=== PATIENT | female | born 1935 | race Caucasian/White ===

== ENCOUNTER 2020-08-01 12:08 | Outpatient (CLI) | payer OTHER, SELFPAY ==
[2020-08-04 21:25] LABS: NIL 0.03 IU/mL; Quantiferon TB Plus, 1T NEGATIVE (NEGATIVE)
== END 2020-08-01 12:09 | disposition home or self-care (01) ==
PROVIDERS: PCP Internal Medicine; Visit Provider Internal Medicine
DX: Z71.89 Other specified counseling (principal); M06.00 Rheumatoid arthritis without rheumatoid factor, unspecified site
CPT/HCPCS: 36415; 86480

== ENCOUNTER 2020-08-11 10:37 | Outpatient (CLI) | payer OTHER, SELFPAY ==
--- NOTE | ~2020-08-11 | XR_ITS ---
XR chest 2V 08/11/2020 11:02 Indication: Rheumatoid arthritis. Procedure: PA and lateral views of the chest Comparison: 01/22/2014 Findings: Heart size normal. There are scattered calcified granulomas. No focal air space disease, pu lmonary edema, pleural effusion or suspected pneumothorax. There is atherosclerosis. No acute osseous abnormality. Impression: 1: No acute cardiopulmonary disease. Reviewed, dictated and finalized at location B. LOGIST Impression: 1: No acute cardiopulmonary disease.
== END 2020-08-11 10:38 | disposition home or self-care (01) ==
PROVIDERS: PCP Internal Medicine; Visit Provider Internal Medicine
DX: M06.9 Rheumatoid arthritis, unspecified (principal)
CPT/HCPCS: 71046

== ENCOUNTER 2023-11-18 14:18 | Outpatient (CLI) | payer OTHER, SELFPAY ==
--- NOTE | ~2023-11-18 | XR_ITS ---
EXAMINATION: XR chest 2V DATE: 11/18/2023 14:52 INDICATION: Rheumatoid arthritis with rheumatoid factor TECHNIQUE: PA and lateral views of the chest were obtained. COMPARISON: Chest radiograph dated 08/11/2020 FINDINGS: There are few scattered small bilateral calcified pulmonary nodules consistent with old granulomatous disease. No other airspace opacities, pulmonary edema, pleural effusion or pneumothorax. The cardiom ediastinal silhouette is normal. Thoracic kyphosis with mild to moderate spondylosis. Cholecystectomy clips in right upper quadrant. IMPRESSION: 1. No acute cardiopulmonary disease. Reviewed, dictated and finalized at location B.
== END 2023-11-18 14:19 | disposition home or self-care (01) ==
PROVIDERS: PCP Family Medicine; Visit Provider Internal Medicine
DX: R70.0 Elevated erythrocyte sedimentation rate (principal); M06.041 Rheumatoid arthritis without rheumatoid factor, right hand; M06.042 Rheumatoid arthritis without rheumatoid factor, left hand
CPT/HCPCS: 71046

== ENCOUNTER 2024-09-08 15:29 | Emergency (ER) | payer OTHER, SELFPAY ==
--- NOTE | ~2024-09-08 | XR_ITS ---
XR ankle LT 2V 09/08/2024 16:05 Indication: Left ankle pain. Edema. Procedure: 2 views left ankle Comparison: 05/30/2018 Findings: There is a trimalleolar fracture with comminution of the distal tibia and fibula. There is dorsal translation of the calcaneus with respect to the tibia with lateral angulation of the fibular fracture. There is moderate displacement of the posterior malleolar fracture with mild displacement m edially of the distal fibular fracture. Impression: 1: Displaced, comminuted trimalleolar fracture with likely intra-articular extension to the tibiotala r joint. Reviewed, dictated and finalized at location A. R BOSS Impression: 1: Displaced, comminuted trimalleolar fracture with likely intra-articular exte nsion to the tibiotalar joint.
--- NOTE | ~2024-09-08 | XR_ITS ---
EXAM: XR ankle LT 2V DATE: 09/08/2024 17:14 HISTORY: reduction x2 . COMPARISON: Same date at 4:47 PM. FINDINGS/IMPRESSION: Radiographic detail obscured by overlying cast material. Persistent posteriorly displaced left ankle trimalleolar fracture. Reviewed, dictated and finalized at location K. 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
--- NOTE | ~2024-09-08 | XR_ITS ---
EXAM: XR ankle LT 2V DATE: 09/08/2024 18:27 HISTORY: reduction x3 . COMPARISON: Same date at 5:12 PM. FINDINGS/IMPRESSION: Radiographic detail obscured by overlying cast material. Persistent, slightly de creased posterior displacement of the comminuted trimalleolar fracture, now with increased lateral di splacement. Reviewed, dictated and finalized at location K. ATER CHIEF
--- NOTE | ~2024-09-08 | XR_ITS ---
EXAM: XR ankle LT 2V DATE: 09/08/2024 16:50 HISTORY: reduction . COMPARISON: 09/08/2024 at 3:55 PM. FINDINGS/IMPRESSION: Radiographic detail limited by overlying cast material. Persistent posteriorly d isplaced trimalleolar fracture. Reviewed, dictated and finalized at location K. ITY PROSPECTOR
[2024-09-08 15:37] VITALS: BP 181/83; PULSE 77; RESP 18; TEMP 36.4; O2SAT 98
--- NOTE | 2024-09-08 15:38 | ED.LOWEXIN ---
HPI - Extremity Injury (Lower) General Chief Complaint: Extremity Injury, Lower <Leila Dang PA-C - Last Filed: 09/08/24 15:39> Stated Complaint: glf, left ankle injury <Leila Dang PA-C - Last Filed: 09/08/24 15:39> Time Seen by Provider: 09/08/24 15:40 <Leila Dang PA-C - Last Filed: 09/08/24 15:39> Focused HPI: 89-year-old female presents emergency department for left ankle pain after injury that occurred prior to arrival. States she had her legs out of the car attempting to stabilizer supple getting the mail when she slipped and twisted her left ankle. She denies other injuries acquired including hit her head or losing consciousness. GENERAL: Well-appearing, well-nourished, and in no acute distress. HEAD: Normocephalic, atraumatic. CHEST: Clear to auscultation. ?No respiratory distress. EXT: Significant edema to the left lateral medial malleolus with tenderness. Sensation intact HEART: Regular rate and rhythm.? NEURO: ?Alert and oriented x3. Patient screened in triage and initial orders placed.? ?Additional care and disposition to be based upon?diagnostic testing and treatment. <Leila Dang PA-C - Last Filed: 09/08/24 15:39> History of Present Illness HPI Narrative: Agree with HPI. Left ankle deformity, no head trauma. No numbness or tingling. <Shantanu Gutierrez MD - Last Filed: 09/08/24 20:14> Related Data Home Medications: Home Medications ?Medication ?Instructions ?Recorded ?Confirmed ?Last Taken ?Type atorvastatin 20 mg tablet 20 mg PO HS 06/23/19 01/21/24 Unknown History cetirizine 10 mg tablet 5 mg PO HS 06/23/19 01/21/24 Unknown History coenzyme Q10 75 mg capsule (Ultra 75 mg PO DAILY 06/23/19 01/21/24 Unknown History CoQ10) glucosamine sulf dipot 1 cap PO BID 06/23/19 01/21/24 Unknown History chlr,msm,chond 550 mg-C 30 mg-james 1 mg capsule (Glucosamine Chondroitin) glucosamine-chondroitin 250 mg-200 1 tablet PO BID 06/23/19 01/21/24 Unknown History mg tablet (Osteo Bi-Flex) hydrochlorothiazide 12.5 mg tablet 12.5 mg PO DAILY 06/23/19 01/21/24 Unknown History irbesartan 300 mg tablet 300 mg PO DAILY 06/23/19 01/21/24 Unknown History metoprolol succinate 50 mg 50 mg PO DAILY 06/23/19 01/21/24 Unknown History tablet,extended release 24 hr multivit,mineral-folic acid 800 1 tablet PO DAILY 06/23/19 01/21/24 Unknown History mcg-vit K 100 mcg-herbal no.289 tablet (Alive Once Daily Women 50 Plus) nitroglycerin 0.4 mg sublingual 0.4 mg sublingual Q5-15M PRN Chest 06/23/19 01/21/24 Unknown History tablet Pain folic acid 1 mg tablet 1 mg PO DAILY 02/23/20 01/21/24 Unknown History risedronate 35 mg tablet (Actonel) 35 mg PO WEEKLY 02/23/20 01/21/24 Unknown History tramadol 50 mg tablet 25 mg PO BID 06/27/21 01/21/24 Unknown History aspirin 325 mg tablet 325 mg PO DAILY PRN Pain 09/11/22 01/21/24 Unknown History Lactobacillus rhamnosus GG 10 1 cap PO DAILY PRN As patient wants 10/09/22 01/21/24 Unknown History billion cell-inulin 200 mg capsule ([facility]) vitamin C 500 mg-multivitamin with 1 tablet PO DAILY 10/09/22 01/21/24 Unknown History minerals chewable tablet (Emergen-C) <Leila Dang PA-C - Last Filed: 09/08/24 15:39> Allergies/Adverse Reactions: Allergies Allergy/AdvReac Type Severity Reaction Status Date / Time hexachlorophene Allergy Severe Rash Verified 09/08/24 15:39 alendronate sodium Allergy Unknown Unknown Verified 09/08/24 15:39 infliximab Allergy Unknown Unknown Verified 09/08/24 15:39 povidone Allergy Unknown Unknown Verified 09/08/24 15:39 soap Allergy Unknown Unknown Verified 09/08/24 15:39 <Leila Dang PA-C - Last Filed: 09/08/24 15:39> [facility] Past Medical History Medical History: Medical History Arthritis ESR raised Heart disease Left arm weakness Myocardial infarction Osteoporosis (~2008) 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 Screening for breast cancer Screening for colon cancer Seronegative rheumatoid arthritis of both hands (~09/2004) <Leila Dang PA-C - Last Filed: 09/08/24 15:39> Surgical History Surgical History: Surgical History H/O section History of intravascular stent placement History of knee replacement Hx of cholecystectomy <Leila Dang PA-C - Last Filed: 09/08/24 15:39> Family History Family History: Family History Father Diabetes mellitus Family history of renal failure Patient's father is Family history of diabetes mellitus in first degree relative Mother Family history of osteoporosis Patient's mother is , Onset Age: 90 Sibling Patient's sister is in good health <Leila Dang PA-C - Last Filed: 09/08/24 15:39> Social History Social History: Social History Smoking status: Never smoker Alcohol intake: never <Leila Dang PA-C - Last Filed: 09/08/24 15:39> Exam Narrative: GENERAL: Well-appearing, well-nourished, and in no acute distress. HEAD: Normocephalic, atraumatic. ENT: Mucous membranes moist. NECK: Supple. CHEST: Clear to auscultation. No respiratory distress. HEART: Regular rate and rhythm. Normal peripheral pulses. ABDOMEN: Soft, nontender, nondistended. EXTREMITIES: Deformity left ankle without tenting. Bruising medially. Normal pulses. SKIN: Warm, dry, no rash. NEURO: Alert and oriented x3. PSYCH: Normal mood and affect. <Shantanu Gutierrez MD - Last Filed: 09/08/24 20:14> Course Course Emergency Course: Patient with a very unstable ankle. Reduce x2 but imaging will then show that the joint has redislocated. Discussed with Orthopedic surgery on-call. Recommends an additional attempt and transfer given instability of joint and osteopenia/charcot foot. Accepted by Dr. Garza at [facility]. <Shantanu Gutierrez MD - Last Filed: 09/08/24 20:14> Vital Signs Vital signs: Vital Signs Temperature 97.6 F 09/08/24 15:37 Pulse Rate 77 09/08/24 15:37 Respiratory Rate 18 09/08/24 15:37 Blood Pressure 181/83 H 09/08/24 15:37 Pulse Oximetry 98 09/08/24 15:37 Oxygen Delivery Room Air 09/08/24 15:37 Temperature 97.6 F 09/08/24 15:37 Pulse Rate 73 09/08/24 18:19 Respiratory Rate 18 09/08/24 18:19 Blood Pressure 155/74 H 09/08/24 18:19 Pulse Oximetry 100 09/08/24 18:19 Oxygen Delivery Room Air 09/08/24 15:37 <Leila Dang PA-C - Last Filed: 09/08/24 15:39> Vital Signs Temperature 97.6 F 09/08/24 15:37 Pulse Rate 77 09/08/24 15:37 Respiratory Rate 18 09/08/24 15:37 Blood Pressure 181/83 H 09/08/24 15:37 Pulse Oximetry 98 09/08/24 15:37 Oxygen Delivery Room Air 09/08/24 15:37 Temperature 97.6 F 09/08/24 15:37 Pulse Rate 73 09/08/24 18:19 Respiratory Rate 18 09/08/24 18:19 Blood Pressure 155/74 H 09/08/24 18:19 Pulse Oximetry 100 09/08/24 18:19 Oxygen Delivery Room Air 09/08/24 15:37 <Shantanu Gutierrez MD - Last Filed: 09/08/24 20:14> Procedures Orthopedic Joint Reduction Joint #1: Side: left <Shantanu Gutierrez MD - Last Filed: 09/08/24 20:14> Joint Reduction Location: ankle <Shantanu Gutierrez MD - Last Filed: 09/08/24 20:14> Analgesia: none (Morphine 4mg then 2mg) <Shantanu Gutierrez MD - Last Filed: 09/08/24 20:14> Pre-Procedure Neuro Vascular Exam: normal <Shantanu Gutierrez MD - Last Filed: 09/08/24 20:14> Technique used: direct manipulation <Shantanu Gutierrez MD - Last Filed: 09/08/24 20:14> Post-reduction neuro exam: intact <Shantanu Gutierrez MD - Last Filed: 09/08/24 20:14> Post-reduction vascular: intact <Shantanu Gutierrez MD - Last Filed: 09/08/24 20:14> Post Reduction X-Ray Obtained: Yes <Shantanu Gutierrez MD - Last Filed: 09/08/24 20:14> Post Reduction X-Ray Results: other (not reduced x 2, reduced x 1) <Shantanu Gutierrez MD - Last Filed: 09/08/24 20:14> Splint Applied: Yes <Shantanu Gutierrez MD - Last Filed: 09/08/24 20:14> Patient Tolerated Procedure: well <Shantanu Gutierrez MD - Last Filed: 09/08/24 20:14> MDM - Extremity Injury (Lower) Lab Data Result diagrams: 09/08/24 18:40 09/08/24 18:40 <Leila Dang PA-C - Last Filed: 09/08/24 15:39> Labs: Lab Results 09/08/24 Range/Units 18:40 WBC 13.3 H (4.5-10.0) K/mm3 RBC 3.87 L (4.2-5.4) M/mm3 Hgb 12.2 (12.0-15.0) g/dL Hct 37.4 (37.0-47.0) % MCV 96.6 (80-100) fl MCH 31.5 (26-34) pg MCHC 32.6 (32-36) g/dl RDW 14.0 (11.5-14.5) % Plt Count 193 (150-375) k/mm3 MPV 10.5 H (7.4-10.4) fl Immature Gran % (Auto) 1.0 H (0-0.5) % Neut % (Auto) 83.6 H (45.5-73.1) % Lymph % (Auto) 11.9 L (18.3-44.2) % [place] % (Auto) 3.1 (2.6-8.5) % Eos % (Auto) 0.1 (0-4.4) % Baso % (Auto) 0.3 (0.2-1.2) % Lymph # (Auto) 1.59 (0.9-3.2) K/mm3 [place] # (Auto) 0.4 (0.1-0.6) K/mm3 Eos # (Auto) 0.0 (0-0.3) K/mm3 Baso # (Auto) 0.0 (0.0-0.1) K/mm3 Abs Immat Gran (auto) 0.14 H (0.00-0.031) K/mm3 Absolute Neuts (auto) 11.1 H (1.3-6.7) K/mm3 Absolute Nucleated RBC 0.000 (0.0-0.012) K/mm3 Nucleated RBC % 0.0 (0.0-0.2) % PT 13.8 (11.1-14.7) Seconds INR 1.0 APTT 24.9 (22.3-36.8) Seconds Sodium 133 L (137-145) mmol/L Potassium 4.6 (3.4-5.0) mmol/L Chloride 102 (98-107) mmol/L Carbon Dioxide 26 (22-30) mmol/L Anion Gap 5 (4-12) mmol/L BUN 33 H D (7-17) mg/dL Creatinine 1.30 H (0.7-1.0) mg/dL Estim Creat Clear Calc Not Reportable Estimated GFR 39 L (59 - ) Glucose 319 H (65-110) mg/dL Calcium 9.9 (8.4-10.2) mg/dL Total Bilirubin 0.9 (0.2-1.3) mg/dL AST 28 (14-36) U/L ALT 24 (6-35) U/L Alkaline Phosphatase 74 (38-126) U/L Total Protein 8.0 (6.3-8.2) g/dL Albumin 4.2 (3.5-5.1) g/dL <Leila Dang PA-C - Last Filed: 09/08/24 15:39> Lab Results 09/08/24 Range/Units 18:40 WBC 13.3 H (4.5-10.0) K/mm3 RBC 3.87 L (4.2-5.4) M/mm3 Hgb 12.2 (12.0-15.0) g/dL Hct 37.4 (37.0-47.0) % MCV 96.6 (80-100) fl MCH 31.5 (26-34) pg MCHC 32.6 (32-36) g/dl RDW 14.0 (11.5-14.5) % Plt Count 193 (150-375) k/mm3 MPV 10.5 H (7.4-10.4) fl Immature Gran % (Auto) 1.0 H (0-0.5) % Neut % (Auto) 83.6 H (45.5-73.1) % Lymph % (Auto) 11.9 L (18.3-44.2) % [place] % (Auto) 3.1 (2.6-8.5) % Eos % (Auto) 0.1 (0-4.4) % Baso % (Auto) 0.3 (0.2-1.2) % Lymph # (Auto) 1.59 (0.9-3.2) K/mm3 [place] # (Auto) 0.4 (0.1-0.6) K/mm3 Eos # (Auto) 0.0 (0-0.3) K/mm3 Baso # (Auto) 0.0 (0.0-0.1) K/mm3 Abs Immat Gran (auto) 0.14 H (0.00-0.031) K/mm3 Absolute Neuts (auto) 11.1 H (1.3-6.7) K/mm3 Absolute Nucleated RBC 0.000 (0.0-0.012) K/mm3 Nucleated RBC % 0.0 (0.0-0.2) % PT 13.8 (11.1-14.7) Seconds INR 1.0 APTT 24.9 (22.3-36.8) Seconds Sodium 133 L (137-145) mmol/L Potassium 4.6 (3.4-5.0) mmol/L Chloride 102 (98-107) mmol/L Carbon Dioxide 26 (22-30) mmol/L Anion Gap 5 (4-12) mmol/L BUN 33 H D (7-17) mg/dL Creatinine 1.30 H (0.7-1.0) mg/dL Estim Creat Clear Calc Not Reportable Estimated GFR 39 L (59 - ) Glucose 319 H (65-110) mg/dL Calcium 9.9 (8.4-10.2) mg/dL Total Bilirubin 0.9 (0.2-1.3) mg/dL AST 28 (14-36) U/L ALT 24 (6-35) U/L Alkaline Phosphatase 74 (38-126) U/L Total Protein 8.0 (6.3-8.2) g/dL Albumin 4.2 (3.5-5.1) g/dL <Shantanu Gutierrez MD - Last Filed: 09/08/24 20:14> Imaging Data Radiologist's impression: ITS Impressions Ankle X-Ray 09/08/24 16:30 Impression: 1: Displaced, comminuted trimalleolar fracture with likely intra-articular extension to the tibiotalar joint. <Shantanu Gutierrez MD - Last Filed: 09/08/24 20:14> ECG Data EKG #1: ECG completion date: 09/08/24 <Shantanu Gutierrez MD - Last Filed: 09/08/24 20:14> ECG completion time: 18:33 <Shantanu Gutierrez MD - Last Filed: 09/08/24 20:14> EKG Interpretation: normal rate (69), sinus rhythm, no ectopy, widened QRS, RBBB (incomplete), normal QT and left axis <Shantanu Gutierrez MD - Last Filed: 09/08/24 20:14> Critical Care Time Critical Care Time Critical Care Time: Yes <Shantanu Gutierrez MD - Last Filed: 09/08/24 20:14> Total Critical Care Time: 35 <Shantanu Gutierrez MD - Last Filed: 09/08/24 20:14> Discharge Plan Discharge Clinical Impression: Closed trimalleolar fracture of ankle <Leila Dang PA-C - Last Filed: 09/08/24 15:39> Patient Disposition: Acute Care Hospital <Leila Dang PA-C - Last Filed: 09/08/24 15:39> Condition: Stable <Leila Dang PA-C - Last Filed: 09/08/24 15:39> Patient Language: Kosovan <Leila Dang PA-C - Last Filed: 09/08/24 15:39> Prescriptions: No Action atorvastatin 20 mg Tablet 20 mg PO HS cetirizine 10 mg Tablet 5 mg PO HS Glucosamine Chondroitin 550-30-1 mg Capsule 1 cap PO BID glucosamine-chondroitin [Osteo Bi-Flex] 250-200 mg Tablet 1 tablet PO BID metoprolol succinate 50 mg Tablet Extended Release 24 Hr 50 mg PO DAILY irbesartan 300 mg Tablet 300 mg PO DAILY hydrochlorothiazide 12.5 mg Tablet 12.5 mg PO DAILY Alive Once Daily Women 50 Plus 800-100 mcg Tablet 1 tablet PO DAILY nitroglycerin 0.4 mg Tablet, Sublingual 0.4 mg SUBLINGUAL Q5-15M PRN (Reason: Chest Pain) Ultra CoQ10 75 mg Capsule 75 mg PO DAILY folic acid 1 mg Tablet 1 mg PO DAILY risedronate [Actonel] 35 mg tablet 35 mg PO WEEKLY tramadol 50 mg Tablet 25 mg PO BID aspirin 325 mg Tablet 325 mg PO DAILY PRN (Reason: Pain) [facility] 10 billion cell -200 mg Capsule 1 cap PO DAILY PRN (Reason: As patient wants) Emergen-C 500 mg Tablet,Chewable 1 tablet PO DAILY <Leila Dang PA-C - Last Filed: 09/08/24 15:39> Follow-up/Referrals: Bebeto,Anthony Mayberry MD [Primary Care Provider] - <Leila Dang PA-C - Last Filed: 09/08/24 15:39>
[2024-09-08] MEDS: MORPHINE SULFATE (*CRX) 4 MG/ML INJ IV PUSH (16:32)
[2024-09-08 16:42] VITALS: BP 156/76; PULSE 63; RESP 16; O2SAT 97
--- NOTE | 2024-09-08 18:04 | ECG_ITS ---
Test Date: 2024-09-08 18:33:03 Measurements Intervals [place] Rate: 69 P: 74 MI: 130 QRS: 26 QRSD: 112 T: 21 QT: 427 QTc: 460 Interpretive Statements SINUS RHYTHM WITH OCCASIONAL SUPRAVENTRICULAR PREMATURE COMPLEXES INCOMPLETE RIGHT BUNDLE BRANCH BLOCK [90+ ms QRS DURATION, TERMINAL R IN V1/V2, 40+ ms S IN I/aVL/V4/V5/V6] MODERATE ST DEPRESSION [0.05+ mV ST DEPRESSION] No previous ECG available for comparison Electronically Signed On 09-08-2024 22:37:58 LEAD RELAY TESTER by Elmer Jara M.D.
[2024-09-08] MEDS: MORPHINE SULFATE (*CRX) 2 MG/ML INJ IV PUSH (18:13)
[2024-09-08 18:19] VITALS: BP 155/74; PULSE 73; RESP 18; O2SAT 100
[2024-09-08 18:45] LABS: Basophils Percent Auto 0.3 % (0.2-1.2); Eosinophils Percent Auto 0.1 % (0-4.4); Hematocrit 37.4 % (37.0-47.0); Hemoglobin 12.2 g/dL (12.0-15.0); Immature Granulocyte Absolute 0.14 K/mm3 (0.00-0.031); Lymphocytes Absolute Auto 1.59 K/mm3 (0.9-3.2); Lymphocytes Percent Auto 11.9 % (18.3-44.2); Mean Corpuscular HGB Conc 32.6 g/dl (32-36); Mean Corpuscular Hemoglobin 31.5 pg (26-34); Mean Corpuscular Volume 96.6 fl (80-100); Mean Platelet Volume 10.5 fl (7.4-10.4); Monocytes Absolute Auto 0.4 K/mm3 (0.1-0.6); Monocytes Percent Auto 3.1 % (2.6-8.5); Neutrophils Absolute Auto 11.1 K/mm3 (1.3-6.7); Neutrophils Percent Auto 83.6 % (45.5-73.1); Platelet Count Result 193 k/mm3 (150-375); Red Blood Count 3.87 M/mm3 (4.2-5.4); White Blood Count 13.3 K/mm3 (4.5-10.0)
[2024-09-08 18:54] LABS: Alanine Aminotransferase 24 U/L (6-35); Albumin Level 4.2 g/dL (3.5-5.1); Alkaline Phosphatase 74 U/L (38-126); Anion Gap 5 mmol/L (4-12); Aspartate Amino Transferase 28 U/L (14-36); Bilirubin,Total 0.9 mg/dL (0.2-1.3); Blood Urea Nitrogen 33 mg/dL (7-17); Calcium 9.9 mg/dL (8.4-10.2); Carbon Dioxide 26 mmol/L (22-30); Chloride 102 mmol/L (98-107); Estimated Glomerular Filt Rate 39; Glucose 319 mg/dL (65-110); Potassium 4.6 mmol/L (3.4-5.0); Sodium 133 mmol/L (137-145)
[2024-09-08 19:00] LABS: Prothrombin Time 13.8 Seconds (11.1-14.7)
[2024-09-08 19:02] LABS: Partial Thromboplastin Time 24.9 Seconds (22.3-36.8)
[2024-09-08 20:45] VITALS: BP 134/67; PULSE 69; RESP 17; O2SAT 99
[2024-09-08] MEDS: ACETAMINOPHEN 325 MG TABLET 650 MG PO (21:56)
[2024-09-08] MEDS: ENOXAPARIN 40 MG/0.4 ML SYRINGE SUB-Q (21:56)
[2024-09-08 22:12] LABS: Glucose Point of Care 214 mg/dl (65-105)
== END 2024-09-08 22:38 | disposition short-term general hospital (02) ==
PROVIDERS: Nurse Practitioner Gerontology; Emergency Provider Emergency Medicine; PCP Family Medicine
DX: S82.852A Displaced trimalleolar fracture of left lower leg, initial encounter for closed fracture (principal); W01.0XXA Fall on same level from slipping, tripping and stumbling without subsequent striking against object, initial encounter; M81.0 Age-related osteoporosis without current pathological fracture
CPT/HCPCS: 27818; 36415; 73600; 80053; 82948; 85025; 85610; 85730; 93005; 96372; 96374; 96375; 99285; A9270; J1650; J2270

== ENCOUNTER 2025-07-03 08:44 | Inpatient (IN) | payer OTHER, SELFPAY ==
--- OUTSIDE RECORDS SUMMARY | 2006-03-18 06:00 | XMS_ITS | Continuity of Care Document ---
Author Organization [facility] Address [address] [place] [address] [facility] [address] [place] [address] Phone Care Team Providers Care Client Manager Name Role Phone Quinn Kimbrough MD Unavailable Unavailable Advance Directives Directive Yes / No Effective Date File Name No Information Encounters Encounter Description Practice Location Reason(s) For Visit Diagnoses Date Provider Providers Copied on Encounter [facility], [address] [place] [address] [address], [place], [place], [id number], [place] tel:[phone] [facility] No Information 0-200 [address] Luis E Ball. [address] [facility] [address], [place], [place], [id number], [place]. tel:[phone] Family History Family Member Type Diagnosis Age At Onset No Information Payers Payer name Insurance type Covered alliance party ID Authoriza tion(s) [employer] Md[employer] Adv CI [id number] Social History Type Description Quantity Date Captured Comments Sex Female Smoking Status No Information Chief Complaint And Reason For Visit No Information Reason For Referral Reason For Referral No Information History Of Present Illness Encounter Date Complaint History Of Prese nt Illness No Information Functional Status Date Functional Assessmen t No Information Instructions Date Instruction Additional Infor mation No Information Assessments Type Assessment Date No Information Patient Care Teams Name Effective Dates (start - stop) Status Members No Information
[2025-07-03] VITALS (22 sets, daily range): BP systolic 101–160; BP diastolic 54–89; PULSE 65–72; RESP 16–34; TEMP 36.2–36.7; O2SAT 94–100; BMI 34.4
--- NOTE | ~2025-07-03 | XR_ITS ---
Examination: XR chest 1V portable Clinical History: HIPOLITO Comparison: 11/18/2023 Technique: Portable AP Findings: Heart size mildly enlarged. Right lower lobe patchy opacity. Mildly increased interstitial markings. No acute bony abnormality. IMPRESSION: 1. Right basilar atelectasis and/or airspace disease. 2. Interstitial pulmonary edema and/or pneumonitis. Reviewed, dictated and finalized at location R.
--- NOTE | ~2025-07-03 | CT_ITS ---
CTA CHEST CLINICAL HISTORY: HIPOLITO . COMPARISON: Chest x-ray today TECHNIQUE: Helical CTA performed from thoracic inlet to upper abdomen IV contrast information not listed in PACS Coronal, sagittal reformats. Multiplanar MIPS CT images acquired with automatic exposure control for dose reduction DLP: 615 mGy-cm FINDINGS: Pulmonary arteries: No PE. Dilated. Thoracic Aorta: No dissection or aneurysm. Atherosclerotic disease. Heart/pericardium: Cardiomegaly. Coronary artery calcifications RV/LV ratio: Normal. Lungs/Pleura: Mild mosaic attenuation. Elevated right hemidiaphragm, with significant right middle lobe atelectasis and right basilar atelectasis. Tracheobronchial tree: Patent. Nodes: No enlarged nodes. Bones: No acute bony abnormality. Soft tissues: Unremarkable. Visualized upper abdomen: Unremarkable. IMPRESSION: 1. No PE. 2. Mild interstitial pulmonary edema. 3. Significant right middle lobe and partial right lower lobe atelectasis secondary to elevated hemidiaphragm. Reviewed, dictated and finalized at location R. IMPRESSION: 1. No PE. 2. Mild interstitial pulmonary edema. 3. Significant right middle lobe and partial right lower lobe atelectasis seco ndary to elevated hemidiaphragm.
--- NOTE | ~2025-07-03 | XR_ITS ---
EXAMINATION: XR chest 1V portable COMPARISON: No comparisons available. HISTORY: Pneumonia FINDINGS: Mild pulmonary venous congestion. Small right basilar infiltrate and effusion. No pneumothorax. Moderate cardiomegaly. Mediastinal and hilar contours are within normal limits. Bony thorax no acute abnormality. Miscellaneous: None Impression: CHF Reviewed, dictated and finalized at location P. Impression: CHF
--- NOTE | 2025-07-03 08:47 | ECG_ITS ---
Test Date: 2025-07-03 08:58:56 Measurements Intervals [place] Rate: 67 P: 68 LA: 150 QRS: -5 QRSD: 113 T: -6 QT: 442 QTc: 468 Interpretive Statements SINUS RHYTHM INCOMPLETE RIGHT BUNDLE BRANCH BLOCK MINIMAL Q WAVES- HIGH LATERAL LEADS BORDERLINE ST-T WAVE ABNORMALITY- ANT/INF LEADS BORDERLINE ECG Compared to ECG 09/08/2024 18:33:03 NO SIGNIFICANT CHANGE Electronically Signed On 07-03-2025 10:46:41 CDT by Fito Gillis D.O.
--- NOTE | 2025-07-03 08:54 | ED.SOB ---
HPI - SOB/Dyspnea General Chief Complaint: Shortness of Breath/Dyspnea Stated Complaint: dyspnea Time Seen by Provider: 07/03/25 08:46 History of Present Illness HPI Narrative: For the past week, patient has had worsening shortness of breath, no cough, no chest pain. FPC mention some swelling to her legs the patient has not noticed Related Data Home Medications ?Medication ?Instructions ?Recorded ?Confirmed ?Last Taken ?Type atorvastatin 20 mg tablet 20 mg PO HS 06/23/19 01/21/24 Unknown History cetirizine 10 mg tablet 5 mg PO HS 06/23/19 01/21/24 Unknown History coenzyme Q10 75 mg capsule (Ultra 75 mg PO DAILY 06/23/19 01/21/24 Unknown History CoQ10) glucosamine sulf dipot 1 cap PO BID 06/23/19 01/21/24 Unknown History chlr,msm,chond 550 mg-C 30 mg-james 1 mg capsule (Glucosamine Chondroitin) glucosamine-chondroitin 250 mg-200 1 tablet PO BID 06/23/19 01/21/24 Unknown History mg tablet (Osteo Bi-Flex) hydrochlorothiazide 12.5 mg tablet 12.5 mg PO DAILY 06/23/19 01/21/24 Unknown History irbesartan 300 mg tablet 300 mg PO DAILY 06/23/19 01/21/24 Unknown History metoprolol succinate 50 mg 50 mg PO DAILY 06/23/19 01/21/24 Unknown History tablet,extended release 24 hr multivit,mineral-folic acid 800 1 tablet PO DAILY 06/23/19 01/21/24 Unknown History mcg-vit K 100 mcg-herbal no.289 tablet (Alive Once Daily Women 50 Plus) nitroglycerin 0.4 mg sublingual 0.4 mg sublingual Q5-15M PRN Chest 06/23/19 01/21/24 Unknown History tablet Pain folic acid 1 mg tablet 1 mg PO DAILY 02/23/20 01/21/24 Unknown History risedronate 35 mg tablet (Actonel) 35 mg PO WEEKLY 02/23/20 01/21/24 Unknown History tramadol 50 mg tablet 25 mg PO BID 06/27/21 01/21/24 Unknown History aspirin 325 mg tablet 325 mg PO DAILY PRN Pain 09/11/22 01/21/24 Unknown History Lactobacillus rhamnosus GG 10 1 cap PO DAILY PRN As patient wants 10/09/22 01/21/24 Unknown History billion cell-inulin 200 mg capsule (Swifto) vitamin C 500 mg-multivitamin with 1 tablet PO DAILY 10/09/22 01/21/24 Unknown History minerals chewable tablet (Emergen-C) Allergies Allergy/AdvReac Type Severity Reaction Status Date / Time hexachlorophene Allergy Severe Rash Verified 09/08/24 15:39 alendronate sodium Allergy Unknown Unknown Verified 09/08/24 15:39 infliximab Allergy Unknown Unknown Verified 09/08/24 15:39 povidone Allergy Unknown Unknown Verified 09/08/24 15:39 soap Allergy Unknown Unknown Verified 09/08/24 15:39 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 Arthritis Heart disease Myocardial infarction (~2010) Osteoporosis (~2008) Surgical History Surgical History Hx of cholecystectomy History of knee replacement H/O section History of intravascular stent placement Family History Family History Father Diabetes mellitus Family history of renal failure Patient's father is Family history of diabetes mellitus in first degree relative Mother Family history of osteoporosis Patient's mother is , Onset Age: 90 Sibling Patient's sister is in good health Social History Social History Smoking status: Never smoker Alcohol intake: never Exam Narrative: EXAMINATION OF ORGAN SYSTEMS/BODY AREAS: Constitutional: Vital signs per nursing GENERAL: Short shallow breaths HEAD: Normal with no signs of head trauma. EYES: EOMI, conjunctiva normal ENT: Hearing grossly intact LUNGS: Shallow respirations, no obvious wheezing or crackles HEART: [Regular rate and rhythm] ABD: [Soft], [nontender to palpation] EXT: Normal range of motion, left ankle slightly more swollen than right the signs of old surgery SKIN: [No rashes or lesions.] NEURO: [Alert. No gross focal sensory or strength deficits.] PSYCH: Normal affect Course Vital Signs Vital signs: Vital Signs Temperature 97.7 F 07/03/25 08:39 Pulse Rate 70 07/03/25 08:39 Respiratory Rate 18 07/03/25 08:39 Pulse Oximetry 97 07/03/25 08:39 Oxygen Delivery Room Air 07/03/25 08:39 Temperature 97.7 F 07/03/25 08:53 Pulse Rate 65 07/03/25 12:04 Respiratory Rate 23 H 07/03/25 12:04 Blood Pressure 149/81 H 07/03/25 12:04 Pulse Oximetry 100 07/03/25 12:04 Oxygen Delivery Nasal Cannula 07/03/25 09:36 Oxygen Flow Rate 2 07/03/25 09:36 MDM - SOB/Dyspnea MDM Narrative Medical decision making narrative: 89F p/w new worsening erendira for past week worse with exertion; on exam does have some shortness of breath, lungs w/o much wheezing but she is taking shallow breaths. CXR on my independent interpretation does look like there are some bilateral opacities concerning for signs of pulmonary edema, and her BNP is elevated, all suggesting possible fluid overload. Given dose of Lasix here, discussed with patient and family if they would feel comfortable going home and they would rather be admitted for diuresis which feels quite reasonable given her age, rate 80s, and she lives at a assisted living. She does have some swelling to her left ankle which appears chronic from her old surgery, but I did obtain D-dimer which is elevated, will obtain CT PE. Discussed with patient and family, she is DNR DNI, does not want invasive procedures, therefore I do feel even if she does have PE, can likely be and admitted here and started on thinners as necessary. CT PE thankfully negative for PE. Discussed with hospitalist for admission. Lab Data 07/03/25 09:06 07/03/25 09:06 Labs: Lab Results 07/03/25 07/03/25 Range/Units 09:06 09:06 WBC 10.0 (4.5-10.0) K/mm3 RBC 3.60 L (4.2-5.4) M/mm3 Hgb 11.2 L (12.0-15.0) g/dL Hct 35.5 L (37.0-47.0) % MCV 98.6 (80-100) fl MCH 31.1 (26-34) pg MCHC 31.5 L (32-36) g/dl RDW 14.5 (11.5-14.5) % Plt Count 213 (150-375) k/mm3 MPV 9.8 (7.4-10.4) fl Immature Gran % (Auto) 0.6 H (0-0.5) % Neut % (Auto) 67.7 (45.5-73.1) % Lymph % (Auto) 22.3 (18.3-44.2) % [place] % (Auto) 5.5 (2.6-8.5) % Eos % (Auto) 3.4 (0-4.4) % Baso % (Auto) 0.5 (0.2-1.2) % Lymph # (Auto) 2.23 (0.9-3.2) K/mm3 [place] # (Auto) 0.6 (0.1-0.6) K/mm3 Eos # (Auto) 0.3 (0-0.3) K/mm3 Baso # (Auto) 0.1 (0.0-0.1) K/mm3 Abs Immat Gran (auto) 0.06 H (0.00-0.031) K/mm3 Absolute Neuts (auto) 6.8 H (1.3-6.7) K/mm3 Absolute Nucleated RBC 0.000 (0.0-0.012) K/mm3 Nucleated RBC % 0.0 (0.0-0.2) % D-Dimer 2.09 H (<0.48) ug/mL Sodium 137 (137-145) mmol/L Potassium 4.0 (3.4-5.0) mmol/L Chloride 98 (98-107) mmol/L Carbon Dioxide 33 H (22-30) mmol/L Anion Gap 6 (4-12) mmol/L BUN 23 H D (7-17) mg/dL Creatinine 1.02 H (0.7-1.0) mg/dL Estim Creat Clear Calc Not Reportable Estimated GFR 51 L (59 - ) Glucose 186 H (65-110) mg/dL Calcium 9.7 (8.4-10.2) mg/dL Magnesium 1.8 Cancelled (1.6-2.3) mg/dL Total Bilirubin 0.5 (0.2-1.3) mg/dL AST 21 (14-36) U/L ALT 13 (6-35) U/L Alkaline Phosphatase 66 (38-126) U/L NT-Pro-B Natriuret Pep 1500 H (19.9-100) pg/mL Total Protein 7.0 (6.3-8.2) g/dL Albumin 3.8 (3.5-5.1) g/dL Discharge Plan Discharge Clinical Impression: Shortness of breath, Pulmonary edema Patient Disposition: Still a Patient Condition: Stable
--- OUTSIDE RECORDS SUMMARY | 2025-07-03 08:59 | XMS_ITS | Clinical Summary ---
Author Organization [facility] Address [address] [place] [address] Care Team Providers Care Palliative Nurse Name Role Phone Arpit Kimble MD Primary Care Provider [phone] Mario Mccann MD Unavailable [phone] Source Comments [facility],non-owned Affiliates and Associated Physician Practices is amultiple site organization consisting of ambulatory clinics and hospital sitesin [place], [place], [place] and [place]. This disclosure is being madepursuant to the Care Everywhere program and may not contain all information available regarding this patient. Last updated 18.[facility] [employer] Allergies Active Allergy Reactions Criticality Noted Date Comments Hexachlorophene Rash,Unknown Medium 10/27/2019 Penicillins Unknown 09/28/2011 Medications * Be aware that medications may not be up to date on this document. Alwaysverify current medications with the patient. cetirizine (ZYRTEC) 10 MG tablet Take 1 (one) tablet by mouth once daily Active calcium citrate (CITRACAL 950) 950 MG tablet Take by mouth 2 times daily. With d Active atorvastatin (LIPITOR) 10 MG tablet Take 1 (one) tablet by mouth at bedtime Active irbesartan (AVAPRO) 300 MG tablet Take 1 (one) tablet by mouth once daily Active Insulin Syringe-Needle U-100 (RELION INSULIN SYR 0.3CC/30G) 30G X 5/16 0.3 ML MISC Use 1 Syringe every 7 days. 100 Syringe prn 3 Active Additional Information Patient not taking.Reason: Patient adjusted, Reported on 09/09/2024 tramadol-aceta minophen (ULTRACET) 37.5-325 MG tablet Take 1 Tab by mouth 3 times daily as needed. 270 Tab 3 3 Active inFLIXimab (REMICADE) injection Pt to receive IV infusion 300mgRemicade/250c c 0.9%normal saline per Remicade protocol unless further orders received from Dr. Mccann. Order will in 1 year. 05/05/2014 3 Active Additional Information Patient not taking.Reason: Provider adjusted, Reported on 09/09/2024 methotrexate 25 MG/ML injection INJECT 0.3ML SUB-Q EVERY 7 DAYS 5 Vial 12 3 Active Additional Information Patient not taking.Reason: Provider adjusted, Informant: Patient, Reported on 09/09/2024 folic acid (FOLVITE) 1 MG tablet TAKE ONE TABLET BY MOUTH ONCE DAILY 90 Tab 3 3 Active hydroCHLOROthi azide 12.5 MG Take 1 (one) tablet by mouth once daily 4 Active predniSONE (Deltasone) 10 MG tablet Take 1 (one) tablet by mouth once daily 4 Active aspirin (Aspirin) 81 MG chew tablet Take 1 (one) tablet by mouth 2 times daily 5 Active senna-docusate (Senokot-S) 8.6-50 MG tablet Take 1 (one) tablet by mouth once daily 5 Active polyethylene glycol 3350 (Miralax) 17 g packet Take 17 (seventeen) g by mouth once daily 5 Active abatacept (Orencia) 125 MG/ML prefilled syringe Inject 1 (one) syringe subcutaneously every 7 days Active abatacept (Orencia) IV injection 750 (seven hundred fifty) mg by Intravenous route SEE ADMIN INSTRUCTIONS Active amoxicillin (Amoxil) 500 MG capsule Take 4 (four) capsules by mouth pre-Procedure once 4 Active amoxicillin-cl avulanate (Augmentin) 875-125 MG tablet Take 1 (one) tablet by mouth every 12 hours FOR 10 DAYS 4 Active B Complex-C (vitamin B complex with C) Take 1 (one) tablet by mouth once daily Active calcium carbonate - vitamin D (Caltrate + D) 600-20 MG-MCG tablet Take 1 (one) tablet by mouth once daily Active [place]-3 Krill Oil 300 MG Take 1 Dose by mouth as directed Active Lactobacillus- Inulin (Culturelle Adult Ult Balance) CAPS Take 1 Dose by mouth as directed Active risedronate (Actonel) 35 MG tablet Take 1 (one) tablet by mouth every 7 days before meal 4 Active traMADol (Ultram) 50 MG tablet Take 1 (one) tablet by mouth 2 times daily as needed for Pain 4 Active sennosides (Senokot) 8.6 MG tablet Take 1 (one) tablet by mouth once daily Active atorvastatin (Lipitor) 20 MG tablet Take 1 (one) tablet by mouth once daily 3 Active metoprolol succinate XL 24hr (Toprol XL) 50 MG tablet Take 1 (one) tablet by mouth once daily 4 Active MULTIPLE VITAMINS-YARN EXAMINER SKEINS ALS PO Take 1 tablet by mouth once daily Active Active Problems Patient Care Coordination No te Formatting of this note migh t be different from the original. Pt to receive Solu-Medrol 125mg SIVP prior to next infusion per Dr Hansen.Christian-Yessica Rosas RN Problem Noted Date Diagnosed Date Leukocytosis, unspecified type 09/09/2024 Normocytic anemia 09/09/2024 Fall, initial encounter 09/09/2024 Closed fracture of left tibia and fibula, initia l encounter 09/09/2024 Acute left ankle pain 09/09/2024 Coronary artery disease invo lving [place] coronary artery of [place] heart 09/09/2024 Transaminitis 09/09/2024 Subclinical hypothyroidism 09/09/2024 Stage 3b chronic kidney disease 09/09/2024 Subclinical hypothyroidism 08/05/2024 Fall 04/17/2024 At high risk for falls 10/11/2022 Obesity (BMI 30-39.9) 01/24/2022 Pulmonary hypertension 09/08/2020 Systolic ejection murmur 03/03/2020 Osteoporosis 12/15/2019 Chest tightness 03/08/2017 Coronary artery disease of n ative artery of [place] heart with stable angina pectoris 02/02/2015 Overview (11/27/2024): Coronary arteriosclerosis in [place] artery Benign essential HTN 02/02/2015 Overview (11/27/2024): Essential hypertension Pure hypercholesterolemia 02/02/2015 Overview (11/27/2024): Pure hypercholesterolemia Primary localized osteoarthritis 10/06/2013 Overview (11/27/2024): LOC PRIM OSTEOART-L/LEG Hyperlipidemia LDL goal <70 10/06/2013 Overview (11/27/2024): HYPERLIPIDEMIA NEC/NOS Hypertension 10/06/2013 Overview (11/27/2024): HYPERTENSION NOS Bronchitis, acute 06/24/2013 High blood pressure 09/28/2011 High blood cholesterol 09/28/2011 Heart attack 09/28/2011 PMR (polymyalgia rheumatica) 09/28/2011 Rheumatoid arthritis 09/28/2011 Overview (07/17/2015): Old DE (myocardial infarction) 09/28/2011 Rheumatoid arthritis 10/24/2004 Overview (11/27/2024): RHEUMATOID ARTHRITIS Immunizations Immunization Administration Dates Next Due Figure 8 Surgical 12+YR 30MCG/0.3mL 10/18/2023 FLU VACCINE TRI IIV3 SPLIT I M (FLUVIRIN) 06/24/2012 INFLUENZA VACCINE 05/12/2021,,06/09/2019,2011 INFLUENZA VACCINE, ADJUVANTE D, QUADR. (FLUAD QUADRIVALENT; 65Y+) (AIIV4) 05/12/2021 INFLUENZA VACCINE, HIGH-DOSE , QUADR. (FLUZONE HIGH-DOSE QUADRIVALENT; 65Y+), 0.7 ML (HD-IIV4) 07/17/2023,06/25/2022,06/09/2019,2015,06/30/2015 INFLUENZA VACCINE, HIGH-DOSE , TRIV. (FLUZONE HIGH-DOSE TRIVALENT; 65Y+) (HD-IIV3) 07/29/2024,06/09/2019,06/14/2017,2013 PNEUMOCOCCAL PPV VACCINE 09/18/2021 PPD 03/27/2013 Pneumococcal Pcv13 Conj 07/27/2015 TD (AGE 7-ADULT) 03/25/2018,01/16/2014 Zoster Hzv Vacc Recombinant Inj Im 11/10/2021, Social History Tobacco Use Types Packs/Day Years Used Date Smoking Tobacco: Never Smokeless Tobacco: Never Tobacco Cessation:Counseling Given: Not Answered Alcohol Use Standard Drinks/Week Comments No 0 (1 standard drink = 0.6 oz pur e alcohol) AUDIT-C Answer Date Recorded Q1: How often do you have a drink containing alcohol? Never 09/11/2024 Q2: How many drinks containi ng alcohol do you have on a typical day when you are drinking? Patient does not drink Q3: How often do you have si x or more drinks on one occasion? Never 09/11/2024 Overall Financial Resource Strain (CARDIA) Answe r Date Recorded How hard is it for you to pa y for the very basics like food, housing, medical care, and heating? Not hard at all 09/11/2024 [facility] [place] [facility] - Occupational Stress Questionnaire Answer Date Recorded Do you feel stress - tense, restless, nervous, or anxious, or unable to sleep at night because your mind is troubled all the time - these days? Not at all 09/11/2024 Hunger Vital Sign Answer Date Recorded Within the past 12 months, y ou worried that your food would run out before you got the money to buy more. Never true 09/11/19 25 Within the past 12 months, t he food you bought just didn't last and you didn't have money to get more. Never true 09/11/2024 PRAPARE - Transportation Answer Date Re corded In the past 12 months, has l ack of transportation kept you from medical appointments or from getting medications? No 11/2024 In the past 12 months, has l ack of transportation kept you from meetings, work, or from getting things needed for daily living? No 09/11/2024 Housing Stability Vital Sign Answer Lenny e Recorded In the last 12 months, was t here a time when you were not able to pay the mortgage or rent on time? No 09/11/2024 In the past 12 months, how m any times have you moved where you were living? 0 09/11/2024 At any time in the past 12 m [facility], were you homeless or living in a fpc (including now)? No 09/11/2024 Comments Unknown Sex and Gender Information Value Date Recorded Sex Assigned at Not on file Legal Sex Female 12:59 PM HOME AIDE Gender Identity Not on file Sexual Orientation Not on file Last Filed Vital Signs Vital Sign Reading Time Taken Comments Blood Pressure 126/67 10/01/2024 10:12 AM HOME AIDE Pulse 80 10/01/2024 10:12 AM HOME AIDE Temperature 37.1 C (98.7 F) 09/30/2024 7:38 PM HOME AIDE Respiratory Rate 19 10/01/2024 10:12 AM HOME AIDE Oxygen Saturation 93% 10/01/2024 5:39 AM HOME AIDE Inhaled Oxygen Concentration - - Weight 83 kg (183 lb) 12/11/2024 10:46 AM CDT Height 147.3 cm (4' 10) 12/11/2024 10:46 AM CDT Body Mass Index 38.25 12/11/2024 10:46 AM CDT Plan of Treatment Health Maintenance Due Date Last Done Comments MEDICARE AWV 12 MONTHS 1937 Respiratory Syncytial Virus (RSV) Vaccine Pt: or over 60 yrs (1 - 1-dose 75+ series) 2012 DEPRESSION SCREENING 09/09/2024 COVID-19 VACCINE (2024- season) 2025 10/18/2023, 09/24/2022, 05/25/2022, Additional history exists INFLUENZA VACCINE (#1) 2025 , 07/17/2023, 06/25/2022, Additional history exists DTAP/TDAP/TD VACCINES (3 - Td or Tdap) 03/25/2028 03/25/2018, 01/16/2014 PNEUMOCOCCAL VACCINE 50+ Completed 09/18/2021, 07/10 ZOSTER VACCINE Completed 11/10/2021, 04/23/2015 BONE DENSITY TESTING Completed 04/09/2023, 05/13/2020, 05/12/2012 (Previously completed) HEPATITIS B VACCINE Aged Out No longe r eligible based on patient's age to complete this topic HIB VACCINE Aged Out No longer eligi ble based on patient's age to complete this topic HPV VACCINE Aged Out No longer eligi ble based on patient's age to complete this topic MENINGOCOCCAL (Group B) VACCINE SHARED DECISION-MAKING Aged Out No longer eligible based on patient's age to complete this topic MENINGOCOCCAL GROUPS A/C/Y/W VACCINE Aged Out No longer eligible based on patient's age to complete this topic Medical Devices Implanted Type Area Backup Operator Device Identifier Shelf Expiration Date Model / Serial / Lot Pin Fx 225mm 6mm Stnm Ss Trnfx - Sna Implanted:Qty: 1 on 09/12/2024 by Rodolfo Ayers DO at [facility] Left: Ankle Synthes Usa 294.950 / NA / NA Screw Extfix 170mm 5mm Schnz Xlng Plvc - Sna Implanted:Qty: 2 on 09/12/2024 by Rodolfo Ayers DO at [facility] Left: Ankle Synthes Usa 294.55 / NA / NA Screw 4mm 125mm Hip Cndyl Rds Slf Drl - Sna Implanted:Qty: 2 on 09/12/2024 by Rodolfo Ayers DO at [facility] Left: Ankle Synthes Usa 294.777 / NA / NA Plate 3 Hle/Hd 7 Hl Shft Lopro Cut To Implanted:Qty: 1 on 09/15/2024 by Rodolfo Ayers DO at [facility] Left: Ankle Synthes Usa 249.669 / / Plate 3 Hl Shrp Hk Lopro Precontr Fib Implanted:Qty: 1 on 09/15/2024 by Rodolfo Ayers DO at [facility] Left: Ankle Synthes Usa 03/08/2034 02.113.103S / / [id number] Screw 2.7mm 14mm T8 Slf-Tap Lck Va Strdr Implanted:Qty: 1 on 09/15/2024 by Rodolfo Ayers DO at [facility] Left: Ankle Synthes [employer]sa 02.211.014 / / Screw 2.7mm 20mm T8 Slf-Tap Lck Va Strdr Implanted:Qty: 1 on 09/15/2024 by Rodolfo Ayers DO at [facility] Left: Ankle Synthes Usa 02.211.020 / / Screw 3.5mm 6mm 26mm 2.5mm Ft Slf-Tap Implanted:Qty: 1 on 09/15/2024 by Rodolfo Ayers DO at [facility] Left: Ankle Synthes Usa 204.826 / / Screw 3.5mm 6mm 34mm 2.5mm Ft Slf-Tap Implanted:Qty: 1 on 09/15/2024 by Rodolfo Ayers DO at [facility] Left: Ankle Synthes Usa 204.834 / / Screw 2.7mm 22mm T8 Slf-Tap Lck Va Strdr Implanted:Qty: 1 on 09/15/2024 by Rodolfo Ayers DO at [facility] Left: Ankle Synthes [employer]sa 02.211.022 / / Screw 2.7mm 18mm T8 Slf-Tap Lck Va Strdr Implanted:Qty: 1 on 09/15/2024 by Rodolfo Ayers DO at [facility] Left: Ankle Synthes Usa 02.211.018 / / 2.7mm/3.5mm Lcp Lateral Distal Fibula Plate/ 7hole, Left Implanted:Qty: 1 on 09/15/2024 by Rodolfo Ayers DO at [facility] Left: Ankle Synthes Usa 02.112.145S / / Screw 3.5mm 6mm 18mm Ft Hakeem Slf-Tap Sm Implanted:Qty: 1 on 09/15/2024 by Rodolfo Ayers DO at [facility] Left: Ankle Synthes Usa 204.818 / / Screw 3.5mm 6mm 14mm Ft Hakeem Slf-Tap Sm Implanted:Qty: 2 on 09/15/2024 by Rodolfo Ayers DO at [facility] Left: Ankle Synthes Usa 204.814 / / Screw 3.5mm 2.9mm 14mm T15 Ft Slf-Tap Implanted:Qty: 1 on 09/15/2024 by Rodolfo Ayers DO at [facility] Left: Ankle Synthes Usa 212.103 / / Screw 2.7mm 16mm T8 Slf-Tap Lck Va Strdr Implanted:Qty: 1 on 09/15/2024 by Rodolfo Ayers DO at [facility] Left: Ankle Synthes [employer]sa 02.211.016 / / Screw 2.4mm 4mm 22mm T8 Cortx Slf-Tap Implanted:Qty: 2 on 09/15/2024 by Rodolfo Ayers DO at [facility] Left: Ankle Synthes Usa 201.772 / / Screw 2.4mm 4mm 26mm T8 Cortx Slf-Tap Implanted:Qty: 1 on 09/15/2024 by Rodolfo Ayers DO at [facility] Left: Ankle Synthes Usa 201.776 / / Screw 2.4mm 4mm 28mm T8 Cortx Slf-Tap Implanted:Qty: 1 on 09/15/2024 by Rodolfo Ayers DO at [facility] Left: Ankle Synthes Usa 201.778 / / Screw 2.4mm 4mm 30mm T8 Cortx Slf-Tap Implanted:Qty: 1 on 09/15/2024 by Rodolfo Ayers DO at [facility] Left: Ankle Synthes Usa 201.780 / / Screw 2.4mm 4mm 34mm T8 Cortx Slf-Tap Implanted:Qty: 1 on 09/15/2024 by Rodolfo Ayers DO at [facility] Left: Ankle Synthes Usa 201.784 / / Plate 6 Hl Lopro Cut To Lgth 52mm Lcp Ss Implanted:Qty: 1 on 09/15/2024 by Rodolfo Ayers DO at [facility] Left: Ankle Synthes [employer]sa 249.676 / / Explanted Type Area Backup Operator Device Identifier Shelf Expiration Date Model / Serial / Lot Screw 2.7mm 5mm 18mm T8 Hakeem Slf-Tap Explanted:Qty: 1 on 09/15/2024 by Rodolfo Ayers DO at [facility] Left: Ankle Synthes Usa 202.878 / / Insurance [facility] MEDICARE Advance Directives * Full Code (Latest Code Status on File) Date Activated Date Inactivated Comments 09/09/2024 5:18 AM 10/01/2024 3:18 PM Care Teams Palliative Nurse Relationship Specialty Start Date End Date Arpit Kimble MD PCP - General Family Medicine 09/19/11 Mario Mccann MD Rheumatology 09/27/11
--- OUTSIDE RECORDS SUMMARY | 2025-07-03 08:59 | XMS_ITS | Encounter Summary ---
Author Organization [facility] Address [facility] [place] [address] Care Team Providers Care Computer Systems Technician Name Role Phone Marely Marti MD Primary Care Provider + [phone] Shantelle Singh BOOTMAKER HAND Primary Care Provider + [phone] Ramila Francois RN Unavailable [phone] Shantelle Singh BOOTMAKER HAND Primary Care Provider + [phone] Ramila Francois RN Unavailable [phone] Encounter Details Date Type Department Care Team (Late st Contact Info) Description 12/15/2019 MyChart Message Enc [facility] Family & Internal Medicine [address] [address] Marely Marti MD [address] [place] [address] RE: Other Social History Tobacco Use Types Packs/Day Years Used Date Smoking Tobacco: Never Smokeless Tobacco: Never Alcohol Use Standard Drinks/Week Comments Not Currently 0 (1 standard drink = 0.6 oz pur e alcohol) PHQ-2 Answer Date Recorded PHQ-2 Score 0 10/27/2019 Comments No Sex and Gender Information Value Date Recorded Sex Assigned at Female 01/12/2025 9:50 AM CDT Legal Sex Female 3:47 PM AUTOMATIC HEAD SAWYER Gender Identity Female 01/08/2022 2:15 PM CDT Sexual Orientation Not on file COVID-19 Exposure Response Date Recorded In the last month, have you been in contact with someone who was confirmed or suspected to have Coronavirus / COVID-19? No / Unsure 12/14/2019 10:58 AM CDT documented as of this encounter Plan of Treatment Upcoming Encounters Date Type Department Care Team (Late st Contact Info) Description 10/12/2025 11:00 AM AUTOMATIC HEAD SAWYER Office Visit [facility] Family & Internal Medicine - [place] [address] [place] [address] [place] [address] [facility] [employer] [address] [place] [address] documented as of this encounter Visit Diagnoses Not on filedocumented in this encounter Additional Health Concerns Infection Onset Date Last Indicated Resolved Time MRSA 01/12/2025 01/12/2025 Respiratory Rule Out 05/14/2025 05/14/2025 025 10:19 AM CDT COVID-19 Rule Out 05/14/2025 05/14/2025 05/14/2025 10:19 AM CDT Assessment Noted Time PHQ-9 Depression Total Score: 0 10/27/19 20 1:42 PM AUTOMATIC HEAD SAWYER documented as of this encounter Care Teams Computer Systems Technician Relationship Specialty Start Date End Date Marely Marti MD PCP - General INTERNAL MEDICINE 10/27/19 03/26/22 [place] [address] [facility] [employer] [address] [place] [address] PCP - General Nurse Practitioner Family 03/27/22 01/17/25 [place] [address] [facility] [address] [place] [address] PCP - General Nurse Practitioner Family 01/18/25 Ramila Francois RN [address] [place] [address] Ginning Operator (Ambulatory) REGISTERED NURSE 09/10/24 01/13/25 Ramila Francois RN [address] [place], [place] [id number] Ginning Operator (Ambulatory) REGISTERED NURSE 05/14/25 06/13/25 documented as of this encounter
--- OUTSIDE RECORDS SUMMARY | 2025-07-03 08:59 | XMS_ITS | Encounter Summary ---
Author Organization [facility] Address [facility] [place] [address] Care Team Providers Care Marketing Community Liaison Name Role Phone Shantelle Singh Karis TRAUMA COUNSELLOR Primary Care Provider + [phone] Encounter Details Date Type Department Care Team (Latest Contact Info) Description 06/22/2025 Results Follow-Up [facility] Family & Internal Medicine [facility] [address] [place] [address] [place] [phone] [address] COMPREHENSIVE METABOLIC PANEL, CBC W/DIFF AUTOMATED Social History Tobacco Use Types Packs/Day Years Used Date Smoking Tobacco: Never Smokeless Tobacco: Never Alcohol Use Standard Drinks/Week Comments Never 0 (1 standard drink = 0.6 oz pur e alcohol) OASIS D0700: Social Isolation Answer Da te Recorded Frequency of experiencing loneliness or isolatio n Never 04/12/2025 OASIS A1250: Transportation Answer Date Recorded Lack of Transportation (Medical) No 04/12/2025 Lack of Transportation (Non-Medical) No 04/12/2025 Patient Unable or Declines to Respond No 04/12/2025 OASIS B1300: Health Literacy Answer Lenny e Recorded Frequency of needing help to read materials from doctor or pharmacy Never 04/12/2025 [facility] Utilities Answer Date Recorded In the past 12 months has th e electric, gas, oil, or water [employer] threatened to shut off services in your home? No 05/13/2025 Humiliation, Afraid, Rape, and Kick questionnair e Answer Date Recorded Within the last year, have y ou been afraid of your partner or ex-partner? No 05/13/2025 Within the last year, have y ou been humiliated or emotionally abused in other ways by your partner or ex-partner? No Within the last year, have y ou been kicked, hit, slapped, or otherwise physically hurt by your partner or ex-partner? No 05/13/2025 Within the last year, have y ou been raped or forced to have any kind of sexual activity by your partner or ex-partner? No 05/13/2025 Social Connection and Isolation Panel Answer Date Recorded In a typical week, how many times do you talk on the phone with family, friends, or neighbors? Three times a week 05/13/2025 How often do you get togethe r with friends or relatives? Once a week 05/13/2025 How often do you attend chur or scientology services? Patient declined 05/13/2025 Do you belong to any clubs o r organizations such as zoroastrian groups, unions, fraternal or athletic groups, or school groups? Patient declined 05/13/2025 How often do you attend meet ings of the clubs or organizations you belong to? Never 05/13/2025 Marital Status Not on file 05/13/2025 AUDIT-C Answer Date Recorded Q1: How often do you have a drink containing alc ohol? Never 01/11/2021 Average Number of Drinks Not on file 021 Frequency of Binge Drinking Not on file 01/2021 Overall Financial Resource Strain (CARDIA) Answe r Date Recorded How hard is it for you to pa y for the very basics like food, housing, medical care, and heating? Not hard at all 05/13/2025 PHQ-2 Answer Date Recorded Patient Health Questionnaire-2 Score 0 01/12/2025 [facility] - Occupational Stress Questionnaire Answer Date Recorded Do you feel stress - tense, restless, nervous, or anxious, or unable to sleep at night because your mind is troubled all the time - these days? Not at all 05/13/2025 Exercise Vital Sign Answer Date Recorde d On average, how many days pe r week do you engage in moderate to strenuous exercise (like a brisk walk)? 0 days 05/13/2025 On average, how many minutes do you engage in exercise at this level? 0 min 05/13/2025 Hunger Vital Sign Answer Date Recorded Within the past 12 months, y ou worried that your food would run out before you got the money to buy more. Never true 05/13/20 25 Within the past 12 months, t he food you bought just didn't last and you didn't have money to get more. Never true 05/13/2025 PRAPARE - Transportation Answer Date Re corded In the past 12 months, has l ack of transportation kept you from medical appointments or from getting medications? No 12/2024 In the past 12 months, has l ack of transportation kept you from meetings, work, or from getting things needed for daily living? No 05/13/2025 Housing Stability Vital Sign Answer Lenny e Recorded In the last 12 months, was t here a time when you were not able to pay the mortgage or rent on time? No 05/13/2025 In the past 12 months, how m any times have you moved where you were living? 0 05/13/2025 At any time in the past [address] [facility], were you homeless or living in a detention (including now)? No 05/13/2025 Comments No Sex and Gender Information Value Date Recorded Sex Assigned at Female 01/12/2025 9:50 AM CDT Legal Sex Female 3:47 PM MEDICAL COLLECTOR Gender Identity Female 01/08/2022 2:15 PM CDT Sexual Orientation Not on file documented as of this encounter Functional Status * Are you deaf or do you have serious difficulty hearing Answer Date of Assessment Author Status Yes 05/13/2025 12:41 PM CDT Maria C Juarez RN Active * Are you blind or do you have serious difficulty seeing, even when wearing glasses? Answer Date of Assessment Author Status No 05/13/2025 12:41 PM CDT Maria C Juarez RN Active * Do you have serious difficulty walking or climbing stairs? Answer Date of Assessment Author Status Yes 05/13/2025 12:41 PM CDT Maria C Juarez RN Active * Do you have difficulty dressing or bathing? Answer Date of Assessment Author Status Yes 05/13/2025 12:41 PM CDT Maria C Juarez RN Active * Because of a physical, mental, or emotional condition, do you have difficulty doing errands alone such as visiting a doctor's office or shopping? Answer Date of Assessment Author Status Yes 05/13/2025 12:41 PM CDT Maria C Juarez RN Active documented as of this encounter Mental Status * Because of a physical, mental, or emotional condition, do you have serious difficulty concentrating, remembering, or making decisions? Answer Entry Date Author Status Yes 05/13/2025 12:41 PM CDT Maria C Juarez RN Active documented in this encounter Progress Notes * Julia Gao MD - 06/22/2025 1:09 PM CDT Lab results -reviewed and showed she is slightly dehydrated with slightly worsening kidney function Pt to lower her irbesartan to 150mg daily ( 1/2 tab of 300mg ) / do not take lasix for now Pt's pcp is Shantelle Singh NP. Pt to f/u with her pcp documented in this encounter Plan of Treatment Upcoming Encounters Date Type Department Care Team (Late st Contact Info) Description 10/12/2025 11:00 AM MEDICAL COLLECTOR Office Visit [facility] Family & Internal Medicine - [place] [phone] [place] [address] Shantelle Singh [place] [phone] [place] [address] [place] [address] documented as of this encounter Visit Diagnoses Not on filedocumented in this encounter Additional Health Concerns Infection Onset Date Last Indicated Resolved Time MRSA 01/12/2025 01/12/2025 Assessment Noted Time PHQ-9 Depression Total Score: 0 09/18/19 22 10:41 AM MEDICAL COLLECTOR documented as of this encounter Care Teams Marketing Community Liaison Relationship Specialty [place] [address] [facility] [address] [place] [address] PCP - General Nurse Practitioner Family 01/18/25 documented as of this encounter
--- OUTSIDE RECORDS SUMMARY | 2025-07-03 08:59 | XMS_ITS | Encounter Summary ---
Author Organization [facility] Address [facility] [place] [address] Care Team Providers Care Internist Medical Doctor Md Name Role Phone Shantelle Singh RESEARCH ADMINISTRATOR Primary Care Provider + [phone] Ramila Francois RN Unavailable [phone] Shantelle Singh RESEARCH ADMINISTRATOR Primary Care Provider + [phone] Ramila Francois RN Unavailable [phone] Encounter Details Date Type Department Care Team (Late st Contact Info) Description 07/07/2024 Therapy Plan [facility] [address] [place], [place] [phone] True Ryan MD [address] [place] [address] Social History Tobacco Use Types Packs/Day Years [...] of Binge Drinking Not on file 01/2021 PHQ-2 Answer Date Recorded Patient Health Questionnaire-2 Score 0 10/18/2023 Comments No Sex and Gender Information Value Date Recorded Sex Assigned at Female 01/12/2025 9:50 AM CDT Legal Sex Female 3:47 PM RECEIVING CLERK Gender Identity Female 01/08/2022 2:15 PM CDT Sexual Orientation Not on file documented as of this encounter Plan of Treatment Upcoming Encounters Date Type Department Care Team (Late st Contact Info) Description 10/12/2025 11:00 AM RECEIVING CLERK Office Visit [facility] Family & Internal Medicine - [address] [address] [place] [address] [facility] [address] [place] [address] documented as of this encounter Visit Diagnoses Diagnosis Rheumatoid arthritis ([facility])- Primary documented in this encounter Additional Health Concerns Infection Onset Date Last Indicated Resolved Time MRSA 01/12/2025 01/12/2025 Respiratory Rule Out 05/14/2025 05/14/2025 025 10:19 AM CDT COVID-19 Rule Out 05/14/2025 05/14/2025 05/14/2025 10:19 AM CDT Assessment Noted Time PHQ-9 Depression Total Score: 0 09/18/19 22 10:41 AM RECEIVING CLERK documented as of this encounter Care Teams Internist Medical Doctor Md Relationship Specialty Start [place] [address] [facility] [address] [place] [address] PCP - General Nurse Practitioner Family 03/27/22 01/17/25 Shantelle Singh RESEARCH ADMINISTRATOR [address] [email or web address] [address] [place] [address] PCP - General Nurse Practitioner Family 01/18/25 Ramila Francois, RN [address] [place] [address] Orchestra Conductor (Ambulatory) REGISTERED NURSE 09/10/24 01/13/25 Ramila Francois, RN [address] [place] [address] Orchestra Conductor (Ambulatory) REGISTERED NURSE 05/14/25 06/13/25 documented as of this encounter
--- OUTSIDE RECORDS SUMMARY | 2025-07-03 08:59 | XMS_ITS | Encounter Summary ---
Author Organization [facility] Address [facility] [place] [address] Care Team Providers Care Millroom Supervisor Name Role Phone Samantha Shantelle Dyson GLOBAL MARKETING OPERATIONS MANAGER Primary Care Provider + [phone] Ramila Francois RN Unavailable [phone] Reason for Visit * Reason Onset Date Comments Therapy Plans 06/09/2025 Orencia Encounter Details Date Type Department Care Team (Late st Contact Info) Description 06/09/2025 Telephone [facility] [address] [place] [address] True Ryan MD [address] [place] [address] Therapy Plans (Orencia ) Social History Tobacco Use Types Packs/Day Years [...] materials from doctor or pharmacy Never 04/12/2025 [facility] Utilities Answer Date Recorded In the past 12 months has e electric, gas, oil, or water company threatened to shut off services in your [...] 05/13/2025 How often do you attend chur ch or worship services? Patient declined 05/13/2025 Do you belong to any clubs o r organizations such as scientologist groups, unions, fraternal or athletic groups, or school groups? Patient declined 05/13/2025 How often do you attend meet ings of the clubs or organizations you belong to? Never 05/13/2025 Marital Status Not on file 05/13/2025 AUDIT-C Answer Date Recorded Q1: How often do you have a drink containing alc ohol? Never 01/11/2021 Average Number of Drinks Not on file Frequency of Binge Drinking Not on file 01/2021 Overall Financial Resource Strain (CARDIA) Answe r Date Recorded How hard is it for you to pa y for the very basics like food, housing, medical care, and heating? Not hard at all 05/13/2025 PHQ-2 Answer Date Recorded Patient Health Questionnaire-2 Score 0 01/12/2025 [facility] - Occupational [...] any time in the past 12 m [facility], were you homeless or living in a jail (including now)? No 05/13/2025 Comments No Sex and Gender Information Value Date Recorded Sex Assigned at Female 01/12/2025 9:50 AM CDT Legal Sex Female 3:47 PM AUDIOVISUAL PRODUCTION SPECIALIST Gender Identity Female 01/08/2022 2:15 PM CDT Sexual Orientation Not on file documented as of this encounter Functional Status * Are you deaf or do you have serious difficulty hearing Answer Date of Assessment Author Status Yes 05/13/2025 12:41 PM CDT Maria C Juarez, RN Active * Are you blind or [...] documented in this encounter Progress Notes * Brittney Miller RN - 06/09/2025 11:41 AM CDT Pt had Orencia infusion on 06/07, next due on 07/05. Gets Orencia 750mg every 4 weeks. Order expiresprior to next due date. Please review and submit new order w/ insurance auth if indicated to [facility] Infusion [facility] at fax # [phone]. documented in this encounter Plan of Treatment Upcoming Encounters Date Type Department Care Team (Late st Contact Info) Description 10/12/2025 11:00 AM AUDIOVISUAL PRODUCTION SPECIALIST Office Visit [facility] Family & Internal Medicine [facility] [address] [place] [address] [place] [address] [facility] [address] [facility] [place] [address] documented as of this encounter Visit Diagnoses Not on filedocumented in this encounter Additional Health Concerns Infection Onset Date Last Indicated Resolved Time MRSA 01/12/2025 01/12/2025 Assessment Noted Time PHQ-9 Depression Total Score: 0 09/18/19 22 10:41 AM AUDIOVISUAL PRODUCTION SPECIALIST documented as of this encounter Care Teams Millroom Supervisor Relationship Specialty Start [place] [address] [facility] [address] [place] [address] PCP - General Nurse Practitioner Family 01/18/25 Ramila Francois, RN [address] [place] [address] Lens Assorter (Ambulatory) REGISTERED NURSE 05/14/25 06/13/25 documented as of this encounter
--- OUTSIDE RECORDS SUMMARY | 2025-07-03 08:59 | XMS_ITS | Clinical Summary ---
Author Organization [facility] Address [address] [place] [address] Care Team Providers Care Dinkey Locomotive Operator Name Role Phone Shantelle Singh SLOT SUPERVISOR Primary Care Provide r Allergies Active Allergy Reactions Criticality Noted Date Comments Hexachlorophene Unknown,Rash Medium 10/27/2019 Penicillins Unknown 09/28/2011 Medications glucosamine-cho ndroitin (OSTEO BI-FLEX) 250-200 mg tablet take 1 by oral route every day 0 0 5 Active cetirizine (ZyrTEC) 10 mg tablet take 1 tablet by oral route every day 0 0 5 Active nitroglycerin (NITROSTAT) 0.[address] 1 tablet (0.4MG) by sublingual route as needed for chest pain, up to 3 tabs, 5 minutes apart 25 1 1 Active pxeskpdh-lwjc-y ifeoma-FA-K-hb#244 (ALIVE WOMEN'S ENERGY) 18-400-80 mg-mcg-mcg tablet take 1 tablet by oral route every morning for 1 morning 1 0 6 Active vit C-vit M-dxyvkh-cgo-om -3 (OCUVITE) 652-50-1-150 va-unqo-zq-mg capsule take one tablet daily 0 0 4 Active coenzyme Q10 (CO Q-10) 30 mg capsule 30 mg. 0 2 Active aspirin 81 mg tablet take 1 tablet by oral route every day 0 1 Active krill slj-uvvdl-5-dha -epa 300-90 (27-45) mg capsule Take by mouth. Activ e folic acid (FOLVITE) 1 mg tablet TAKE ONE TABLET BY MOUTH ONCE DAILY 90 tablet 3 8 Active risedronate (ACTONEL) 35 mg tablet Take 1 tablet (35 mg total) by mouth every 7 days with water on empty stomach, nothing by mouth or lie down for next 30 minutes. Active abatacept (ORENCIA) 125 mg/mL injectionIndica tions:Rheumatoi d Arthritis Inject 1 mL (125 mg total) under the skin once a week Active calcium carbonate-vitam in D3 1,500 mg (600mg elemental) -800 unit per tablet Take 1 tablet by mouth daily Active traMADoL (ULTRAM) 50 mg tablet TAKE 1 TABLET BY MOUTH TWICE A DAY NEEDED FOR CHRONIC PAIN 3 Active atorvastatin (LIPITOR) 20 mg tablet TAKE 1 TABLET BY MOUTH EVERY DAY 90 tablet 2 3 Active vit B1 mn/B2/B3/B5/B6/ B12/C/FA (B COMPLEX W-VIT C ORAL) Take 1 tablet by mouth daily Active irbesartan (AVAPRO) 300 mg tablet TAKE 1 TABLET BY MOUTH EVERY DAY 90 tablet 1 5 Active hydroCHLOROthia zide 12.5 mg tablet TAKE 1 TABLET BY MOUTH EVERY DAY 90 tablet 1 5 Active metoprolol XL (TOPROL-XL) 50 mg extended release tablet TAKE 1 TABLET BY MOUTH EVERY DAY DIRECTED 90 tablet 1 5 Active Active Problems Problem Noted Date Diagnosed Date Pulmonary hypertension 09/08/2020 Systolic ejection murmur 03/03/2020 Chest tightness 03/08/2017 Body mass index 40+ - severely obese 11/14/2016 Overview (02/01/2017): Morbid obesity with BMI of 40.0-44.9, adult 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 02/02/2015 Overview (12/13/2016): Coronary arteriosclerosis in jackson artery Pure hypercholesterolemia 02/02/2015 Overview (12/13/2016): Pure hypercholesterolemia Primary localized osteoarthritis 10/06/2013 Overview (12/13/2016): LOC PRIM OSTEOART-L/LEG Drug indicated 10/06/2013 Overview (12/13/2016): LONG-TERM USE MEDS NEC Hyperlipidemia LDL goal <70 10/06/2013 Overview (12/14/2016): HYPERLIPIDEMIA NEC/NOS Hypertension 10/06/2013 Overview (12/14/2016): HYPERTENSION NOS Rheumatoid arthritis 10/06/2013 Overview (12/14/2016): RHEUMATOID ARTHRITIS Immunizations Immunization Administration Dates Next Due Influenza, Trivalent, High D ose, Split, Preservative Free, Intramuscular 06/14/2017,07/01/2016,06/30/2015,06/21 Pneumococcal Conjugate PCV 13 07/27/2015 Surgical History Surgery Date Site/Laterality Comments OTHER SURGICAL HISTORY Total Knee Replacement L. OTHER SURGICAL HISTORY Appendectomy & Cholecyctectomy CHOLECYSTECTOMY Cholecystectomy SECTION section APPENDECTOMY Appendectomy CATARACT EXTRACTION Cataract extraction CATARACT EXTRACTION 2013 CATARACTS SECTION 04/1955 JOINT REPLACEMENT 07/2008 KNEE REPLACEMENT SHUNT EXTERNALIZATION [address] Sim Medical History Medical History Date Comments Hx Other Medical Osteoarthritis - degenerative Primary fibromyalgia syndrome Fi bromyalgia Adiposity Obesity Hx Other Medical PMR Hx Other Medical Left TKR; Comme nts: [facility] 12/14/2014 - Hx Other Medical Osteoarthritis- degenerative; Comments: [facility] 12/14/2014 - Hx Other Medical Fibromyalgia; C omments: [facility] 12/14/2014 - Rheumatoid arthritis (HCC) 10/06/2013 RHEUM ATOID ARTHRITIS Primary localized osteoarthritis 10/06/2013 LOC PRIM OSTEOART-L/LEG Coronary arteriosclerosis in jackson artery 02/02/2015 Coronary arteriosclerosis in jackson artery Hypertension 10/06/2013 HYPERTENSION NOS Osteoporosis 2019 Heart disease HEART ATTACK 03/2011 . STENT INSERTED Mixed conductive and sensorineural hearing loss Hearing Aids 2020 Cataract Family History Medical History Relation Name Comments Diabetes Father H. P. McAnulty Diabetes type II Father Abelino Garcia Diabetes mellitus type 2; Early Father Abelino Garcia Hearing loss Father Abelino Garcia Heart attack Father Abelino Garcia Heart disease Father Abelino Garcia Kidney disease Father Abelino Garcia Renal disea se; Other Father Abelino Garcia CKD,DM; Cause of : CKD,DM/CKD, DM; Cause of : CKD, DM Alzheimer's disease Mother Yarely Garcia Arthritis Mother Yarely Garcia Memory loss Mother Yarely Garcia Other Mother Yarely Garcia old age; Relation Name Status Comments Father Abelino Garcia (Age 87) Mother Yarely Garcia Social History Tobacco Use Types Packs/Day Years Used Date Smoking Tobacco: Never Cigarettes Smokeless Tobacco: Never Tobacco Cessation:Counseling Given: Not Answered Alcohol Use Standard Drinks/Week Comments No 0 (1 standard drink = 0.6 oz pur e alcohol) Comments Unknown Sex and Gender Information Value Date Recorded Sex Assigned at Not on file Legal Sex Female 12:01 PM CRAPS DEALER Gender Identity Female 03/09/2021 1:20 PM CDT Sexual Orientation Not on file Obstetrics History Last Filed Vital Signs Vital Sign Reading Time Taken Comments Blood Pressure 136/72 04/20/2024 11:47 AM CDT Pulse 56 04/20/2024 11:47 AM CDT Temperature 36.2 C (97.1 F) 04/01/2020 11:16 AM CDT Respiratory Rate 16 05/01/2018 10:55 AM CDT Oxygen Saturation 98% 04/20/2024 11:47 AM CDT Inhaled Oxygen Concentration - - Weight 83 kg (183 lb) 04/20/2024 11:47 AM CDT Height 149.9 cm (4' 11) 04/20/2024 11:47 AM CDT Body Mass Index 36.96 04/20/2024 11:47 AM CDT Plan of Treatment Health Maintenance Due Date Last Done Comments Depression Screening 1935 Hepatitis B Screening 1953 Well Visit 65+ 2002 DTaP/Tdap/Td Vaccine (1 - Tdap) 03/26/2018 8, 01/16/2014 Fall Risk Assessment 05/01/2019 05/01/2018, 01/10/20 Osteoporosis Screening-Bone Density Scan 04/09/2025 04/09/2023 Covid-19 Vaccine (4 - 2025-2 6 season) 2025 07/11/2021, 11/18/2020, 10/21/2020 Influenza Vaccine (#1) 2025 4, 05/12/2021, 05/01/2020, Additional history exists Pneumococcal vaccine 65+ Completed 09/18/2021, 07/10 Zoster Vaccine Completed 11/10/2021, 04/23/2015 Insurance [facility] Care Teams Dinkey Locomotive Operator Relationship Specialty [place] [address] [address] [id number] PCP - General Nurse Practitioner 10/01/22
--- OUTSIDE RECORDS SUMMARY | 2025-07-03 08:59 | XMS_ITS | Encounter Summary ---
Author Organization [facility] Address [address] [place] [address] Phone Care Team Providers Care Tactical Intelligence Officer Name Role Phone Sukhdeep Ward MD Primary Care Provider [phone] Consuelo Gómez MD Primary Care Provider Marely Marti MD Primary Care Provider [phone] Shantelle Singh HEAD START TEACHER Primary Care Provide r Encounter Details Date Type Department Care Team (Late st Contact Info) Description 01/09/2018 Orders Only [facility] ProviderJohn MD [address] [place] [id number] Social History Tobacco Use Types Packs/Day Years Used Date Smoking Tobacco: Never Smokeless Tobacco: Never Alcohol Use Standard Drinks/Week Comments No 0 (1 standard drink = 0.6 oz pur e alcohol) Comments Unknown Sex and Gender Information Value Date Recorded Sex Assigned at Not on file 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 us Historical Provider LAB BLOOD ORDERABLES Rozina l Result documented in this encounter Visit Diagnoses Not on filedocumented in this encounter Care Teams Tactical Intelligence Officer Relationship Specialty Start Date End Date Sukhdeep Ward MD [address] [place] [address] PCP - General 12/07/16 06/01/19 Consuelo Gómez MD [address] [place] [address] PCP - General Family Medicine 06/02/19 03/02/20 [place] [address] [address] [facility] [address] [place] [address] PCP - General Internal Medicine 03/03/20 09/30/22 [place] [address] [address] [facility] [address] [place] [address] PCP - General Nurse Practitioner 10/01/22 documented as of this encounter
--- OUTSIDE RECORDS SUMMARY | 2025-07-03 09:00 | XMS_ITS | Encounter Summary ---
Author Organization [facility] Address [facility] [place] [address] Care Team Providers Care Recruitment Director Name Role Phone Marely Marti MD Primary Care Provider + [phone] Shantelle Singh FIRE INVESTIGATION LIEUTENANT Primary Care Provider + [phone] Ramila Francois RN Unavailable [phone] Shantelle Singh FIRE INVESTIGATION LIEUTENANT Primary Care Provider + [phone] Ramila Francois RN Unavailable [phone] Encounter Details Date Type Department Care Team (Late st Contact Info) Description 03/20/2022 6Rooms Message Enc [facility] Family & Internal Medicine [address] [address] [facility] Provider Reschedule 03/21 appt Social History Tobacco Use Types Packs/Day Years [...] on file 01/2021 PHQ-2 Answer Date Recorded PHQ-2 Score - If the patient scores above 3, please move on to questions 3-9 0 09/18/2021 Comments No Sex and Gender Information Value Date Recorded Sex Assigned at Female 01/12/2025 9:50 AM CDT Legal 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 [place] [address] PCP - General Nurse Practitioner Family 03/27/22 01/17/25 [place] [address] [facility] [address] [place] [address] PCP - General Nurse Practitioner Family 01/18/25 Ramila Francois RN [address] [place] [address] Health And Safety Consultant (Ambulatory) REGISTERED NURSE 09/10/24 01/13/25 Ramila Francois RN [address] [place] [address] Health And Safety Consultant (Ambulatory) REGISTERED NURSE 05/14/25 06/13/25 documented as of this encounter
[2025-07-03 09:14] LABS: Hematocrit 35.5 % (37.0-47.0); Hemoglobin 11.2 g/dL (12.0-15.0); Immature Granulocyte Percent A 0.6 % (0-0.5); Lymphocytes Absolute Auto 2.23 K/mm3 (0.9-3.2); Mean Corpuscular HGB Conc 31.5 g/dl (32-36); Mean Corpuscular Hemoglobin 31.1 pg (26-34); Mean Corpuscular Volume 98.6 fl (80-100); Nucleated Red Blood Cells Absolute Auto 0.000 K/mm3 (0.0-0.012); Nucleated Red Blood Cells Perc 0.0 % (0.0-0.2); Platelet Count Result 213 k/mm3 (150-375); Red Blood Count 3.60 M/mm3 (4.2-5.4); White Blood Count 10.0 K/mm3 (4.5-10.0)
[2025-07-03 09:35] LABS: Alanine Aminotransferase 13 U/L (6-35); Albumin Level 3.8 g/dL (3.5-5.1); Alkaline Phosphatase 66 U/L (38-126); Anion Gap 6 mmol/L (4-12); Aspartate Amino Transferase 21 U/L (14-36); Bilirubin,Total 0.5 mg/dL (0.2-1.3); Blood Urea Nitrogen 23 mg/dL (7-17); Calcium 9.7 mg/dL (8.4-10.2); Carbon Dioxide 33 mmol/L (22-30); Chloride 98 mmol/L (98-107); Estimated Glomerular Filt Rate 51; Glucose 186 mg/dL (65-110); Magnesium 1.8 mg/dL (1.6-2.3); Potassium 4.0 mmol/L (3.4-5.0); Sodium 137 mmol/L (137-145); Total Protein 7.0 g/dL (6.3-8.2)
[2025-07-03 09:42] LABS: NT Pro B Type Natriuretic Pept 1500 pg/mL (19.9-100)
[2025-07-03] MEDS: FUROSEMIDE INJ 40 MG/4 ML VIAL 20 MG IV PUSH ×2 (12:04→17:53)
--- NOTE | 2025-07-03 12:19 | PM.IMHP ---
H&P: HPI History of Present Illness Date/Time: 07/03/25 12:19 Chief Complaint: Shortness of Breath Narrative: 89 y/o F with PMH of CHF, myocardial infarction (2010, s/p stent), osteoporosis, coronary artery disease, hyperlipidemia, hypertension, fibromyalgia presents here with shortness of breath. The patient presents here from [facility] via EMS for further evaluation of worsening shortness of breath. She reports onset approximately 1 week ago. Shortness of breath worsens with exertion and has been progressive since onset. She reports a very mild intermittent dry cough. She denies accompanying rhinorrhea, congestion, chest pain, abdominal pain, nausea, vomiting, diarrhea, fever, chills, weight gain, or lower extremity edema. Initial VS at presentation: 97.7? F, HR 70, R 18, 160/81, and 97% on RA. ED workup showed: No leukocytosis, hemoglobin 11.2 (12.2 in 2023), D-dimer elevated, no significant electrolyte derangements, creatinine 1.02 and GFR 51, glucose 186, BNP 1500. CXR showed right basilar atelectasis and/or airspace disease, interstitial pulmonary edema and/or pneumonitis. EKG showed sinus rhythm, incomplete right bundle branch block, rate 76, minimal Q-waves high lateral leads, borderline ST-T-wave abnormalities. 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 Arthritis Heart disease Myocardial infarction (~2010) Osteoporosis (~2008) Surgical History Surgical History Hx of cholecystectomy History of knee replacement H/O section History of intravascular stent placement Family History Family History Father Diabetes mellitus Family history of renal failure Patient's father is Family history of diabetes mellitus in first degree relative Mother Family history of osteoporosis Patient's mother is , Onset Age: 90 Sibling Patient's sister is in good health Social History Social History Smoking status: Never smoker Alcohol intake: never Substance use: never Substance use type: does not use Lack of Transportation: No Lack of Food: Never True Current Housing: I Have Housing Concerned About Future Housing: No Difficulty Paying Gas/Electric Bills: No Difficulty Paying for Meds: No Currently Unemployed: No Education: Associate Degree Difficulty w/ Childcare or Family Care: No Spiritual care concerns: No Meds Home Medications and Allergies Home Medications ?Medication ?Instructions ?Recorded ?Confirmed ?Type atorvastatin 20 mg tablet 20 mg PO HS 06/23/19 07/03/25 History cetirizine 10 mg tablet 5 mg PO HS 06/23/19 07/03/25 History coenzyme Q10 75 mg capsule (Ultra 75 mg PO DAILY 06/23/19 07/03/25 History CoQ10) glucosamine-chondroitin 250 mg-200 1 tablet PO BID 06/23/19 07/03/25 History mg tablet (Osteo Bi-Flex) hydrochlorothiazide 12.5 mg tablet 12.5 mg PO DAILY 06/23/19 07/03/25 History irbesartan 300 mg tablet 300 mg PO DAILY 06/23/19 07/03/25 History metoprolol succinate 50 mg 50 mg PO DAILY 06/23/19 07/03/25 History tablet,extended release 24 hr multivit,mineral-folic acid 800 1 tablet PO DAILY 06/23/19 07/03/25 History mcg-vit K 100 mcg-herbal no.289 tablet (Alive Once Daily Women 50 Plus) nitroglycerin 0.4 mg sublingual 0.4 mg sublingual Q5-15M PRN Chest 06/23/19 07/03/25 History tablet Pain folic acid 1 mg tablet 1 mg PO DAILY 02/23/20 07/03/25 History risedronate 35 mg tablet (Actonel) 35 mg PO WEEKLY 02/23/20 07/03/25 History tramadol 50 mg tablet 25 mg PO BID 06/27/21 07/03/25 History aspirin 325 mg tablet 325 mg PO DAILY PRN Pain 09/11/22 07/03/25 History Lactobacillus rhamnosus GG 10 1 cap PO DAILY PRN As patient wants 10/09/22 07/03/25 History billion cell-inulin 200 mg capsule ([facility] [employer]) vitamin C 500 mg-multivitamin with 1 tablet PO DAILY 10/09/22 07/03/25 History minerals chewable tablet (Emergen-C) aspirin 81 mg chewable tablet 81 mg PO BID 07/03/25 07/03/25 History Allergies Allergy/AdvReac Type Severity Reaction Status Date / Time hexachlorophene Allergy Severe Rash Verified 07/03/25 12:53 alendronate sodium Allergy Unknown Unknown Verified 07/03/25 12:53 infliximab Allergy Unknown Unknown Verified 07/03/25 12:53 povidone Allergy Unknown Unknown Verified 07/03/25 12:53 soap Allergy Unknown Unknown Verified 07/03/25 12:53 Vital Signs Vital Signs - 24 hr 07/03/25 08:39 07/03/25 08:51 07/03/25 08:52 Temperature 97.7 F Pulse Rate 70 72 Respiratory Rate 18 Blood Pressure Pulse Oximetry 97 94 Oxygen Delivery Room Air Room Air Oxygen Flow Rate 07/03/25 08:53 07/03/25 08:55 07/03/25 09:02 Temperature 97.7 F Pulse Rate 72 72 67 Respiratory Rate 18 34 H 24 H Blood Pressure 160/81 H 160/81 H 159/77 H Pulse Oximetry 96 95 98 Oxygen Delivery Oxygen Flow Rate 07/03/25 09:16 07/03/25 09:31 07/03/25 09:36 Temperature Pulse Rate 66 65 Respiratory Rate 25 H 27 H Blood Pressure 144/82 H 148/75 H Pulse Oximetry 95 100 100 Oxygen Delivery Nasal Cannula Oxygen Flow Rate 2 07/03/25 09:46 07/03/25 10:01 07/03/25 10:16 Temperature Pulse Rate 70 69 68 Respiratory Rate 20 25 H 19 Blood Pressure 152/89 H 138/83 142/72 H Pulse Oximetry 100 100 Oxygen Delivery Oxygen Flow Rate 07/03/25 10:32 07/03/25 10:46 07/03/25 11:01 Temperature Pulse Rate 67 68 70 Respiratory Rate 20 27 H 26 H Blood Pressure 136/71 146/71 H 101/54 L Pulse Oximetry 98 100 98 Oxygen Delivery Oxygen Flow Rate 07/03/25 11:16 07/03/25 12:04 Temperature Pulse Rate 65 65 Respiratory Rate 19 23 H Blood Pressure 138/72 149/81 H Pulse Oximetry 100 Oxygen Delivery Oxygen Flow Rate Exam Const: General: comfortable and no acute distress Other: , female, nontoxic appearance HENMT: Face/Nose/Sinus: Normal nares present Mouth: Yes moist mucous membranes Eyes: General: appearance normal, both eyes and all related structures Sclera: sclerae normal Pupils: Equal, round and reactive pupils present EOM: EOMs intact bilaterally Resp: Other: Shallow respirations, very mild tachypnea without overt distress or accessory muscle use. Nasal cannula place, tolerating well. Diminished at bases. No wheezing or crackles appreciated on exam. Cardio: Rate: regular rate Rhythm: regular rhythm Other: S1-S2 present without murmur, rub, ectopy GI: Other: Abdomen soft, nondistended, nontender. Normoactive bowel sounds in all quadrants. Skin: General skin exam: normal color and no rashes or lesions noted Wounds: no wounds Neuro: Speech: normal speech Motor exam (neuro): 5/5 motor strength present throughout Sensory Exam: normal sensation Extrem: Other: Trace edema to bilateral calves, symmetric. Trace to 1+ pitting edema to bilateral ankles, symmetric. Psych: Mental Status: mental status grossly normal Affect: normal affect Other: Fair insight and judgment, pleasant H&P: Results Labs Labs: Short CBC 07/03/25 Range/Units 09:06 WBC 10.0 (4.5-10.0) K/mm3 Hgb 11.2 L (12.0-15.0) g/dL Hct 35.5 L (37.0-47.0) % Plt Count 213 (150-375) k/mm3 BMP 07/03/25 09:06 Sodium 137 Potassium 4.0 Chloride 98 Carbon Dioxide 33 H BUN 23 H D Creatinine 1.02 H Glucose 186 H Calcium 9.7 Liver Function 07/03/25 Range/Units 09:06 Total Bilirubin 0.5 (0.2-1.3) mg/dL AST 21 (14-36) U/L ALT 13 (6-35) U/L Alkaline Phosphatase 66 (38-126) U/L Albumin 3.8 (3.5-5.1) g/dL Assessment and Plan Assessment and plan (1) CHF (congestive heart failure): Code(s): I50.9 - Heart failure, unspecified Status: Acute Assessment and Plan: Presented on 07/03 with worsening dyspnea and cough for the past week. Patient has history of congestive heart failure. She arrived 97% on room air. BNP elevated at 1500. CXR completed day of admission on 07/03 which showed 1. Right basilar atelectasis and/or airspace disease. 2. Interstitial pulmonary edema and/or pneumonitis. D-dimer was additionally elevated, however CTA negative for PE. No pneumonia appreciated, mild interstitial pulmonary edema seen. - update echo - reviewed chart, no previous echo on file - start IV diuresis: Lasix 40 mg IV daily. Will hold home HCTZ. - monitor I&Os and daily weights - monitor renal function (2) HTN (hypertension): Qualifiers: Hypertension type: primary hypertension Qualified Code(s): I10 - Essential (primary) hypertension Code(s): I10 - Essential (primary) hypertension Status: Chronic Assessment and Plan: - chronic, currently 149/81, stable. - continue home medications: irbesartan, metoprolol. Hold HCTZ, receiving IV diuresis. - monitor (3) HLD (hyperlipidemia): Qualifiers: Hyperlipidemia type: unspecified Qualified Code(s): E78.5 - Hyperlipidemia, unspecified Code(s): E78.5 - Hyperlipidemia, unspecified Status: Chronic Assessment and Plan: - continue home medication: Atorvastatin 20 mg HS Plan Diet: Heart healthy GI Prophylaxis: N/a DVT Prophylaxis: Lovenox IV fluids: None, diuresing Lines/Tubes: Peripheral IV Code Status: DNR Quality VTE Prophylaxis VTE prophylaxis: pharmacologic ordered Hospitalist MIPS Advance Care Plan I have confirmed that the patient's Advanced Care Plan is present, code status is documented, or surrogate decision maker is listed in patient medical record.: Yes Medication Reconciliation I have utilized all available resources to obtain, update and review the patients current medications (includes all prescriptions, OTC, herbals, cannabis, and nutritional supplements).: Yes
--- NOTE | 2025-07-03 12:43 | ADMGEN ---
This patient, Rebecca Dillard, was admitted to Medical Room 245-. Patient/family oriented to hospital policies and general routines including ID bracelet, bed and alarms, visiting hours, pain management, procedures, bathroom and other care routines, personal items, smoking policy, room service/diet, and visiting hours. Information on how to activate the Rapid Response Team has been discussed. Patient/Family are encouraged to report perceived risks to care and to ask questions if they do not understand what they are told or what they should do.
[2025-07-03] MEDS: traMADol HCL (*CRX) 25 MG TABLET PO (17:52)
[2025-07-03] MEDS: ASPIRIN 81 MG CHEWABLE TABLET PO (17:52)
[2025-07-03] MEDS: LORATADINE 5 MG TABLET PO (20:42)
[2025-07-03] MEDS: ATORVASTATIN 20 MG TABLET PO (20:42)
[2025-07-04] VITALS (7 sets, daily range): BP systolic 103–132; BP diastolic 43–72; PULSE 66–70; RESP 16–18; TEMP 36.5–36.8; O2SAT 93–100
[2025-07-04 04:45] LABS: Hematocrit 35.4 % (37.0-47.0); Hemoglobin 11.2 g/dL (12.0-15.0); Immature Granulocyte Percent A 0.4 % (0-0.5); Lymphocytes Absolute Auto 2.42 K/mm3 (0.9-3.2); Mean Corpuscular HGB Conc 31.6 g/dl (32-36); Mean Corpuscular Hemoglobin 31.3 pg (26-34); Mean Corpuscular Volume 98.9 fl (80-100); Nucleated Red Blood Cells Absolute Auto 0.000 K/mm3 (0.0-0.012); Nucleated Red Blood Cells Perc 0.0 % (0.0-0.2); Platelet Count Result 204 k/mm3 (150-375); Red Blood Count 3.58 M/mm3 (4.2-5.4); White Blood Count 8.3 K/mm3 (4.5-10.0)
[2025-07-04 05:01] LABS: Anion Gap 6 mmol/L (4-12); Blood Urea Nitrogen 22 mg/dL (7-17); Calcium 9.3 mg/dL (8.4-10.2); Carbon Dioxide 36 mmol/L (22-30); Chloride 94 mmol/L (98-107); Estimated Glomerular Filt Rate 43; Glucose 142 mg/dL (65-110); Potassium 3.6 mmol/L (3.4-5.0); Sodium 136 mmol/L (137-145)
[2025-07-04] MEDS: MULTIVITAMINS /C LUTEIN (CENTRUM SILVER) TABLET *BKC 1 TAB PO (08:29)
[2025-07-04] MEDS: FOLIC ACID 1 MG TABLET PO (08:29)
[2025-07-04] MEDS: traMADol HCL (*CRX) 25 MG TABLET PO ×2 (08:29→17:06)
[2025-07-04] MEDS: ASPIRIN 81 MG CHEWABLE TABLET PO ×2 (08:30→17:06)
[2025-07-04] MEDS: IRBESARTAN 150 MG TABLET 300 MG PO (08:39)
[2025-07-04] MEDS: METOPROLOL SUCCINATE EXT REL 50 MG TABCR PO (08:39)
[2025-07-04] MEDS: FUROSEMIDE INJ 40 MG/4 ML VIAL IV PUSH (08:43)
[2025-07-04] MEDS: ENOXAPARIN 40 MG/0.4 ML SYRINGE SUB-Q (08:44)
--- NOTE | 2025-07-04 09:01 | PM.IMPN ---
Progress Note: A&P Assessment and Plan (1) CHF (congestive heart failure): Code(s): I50.9 - Heart failure, unspecified Status: Acute Assessment and Plan: Presented on 07/03 with worsening dyspnea and cough for the past week. Patient has history of congestive heart failure. She arrived 97% on room air. BNP elevated at 1500. CXR completed day of admission on 07/03 which showed 1. Right basilar atelectasis and/or airspace disease. 2. Interstitial pulmonary edema and/or pneumonitis. D-dimer was additionally elevated, however CTA negative for PE. No pneumonia appreciated, mild interstitial pulmonary edema seen. - Echo - IV diuresis: Lasix 40 mg IV daily. Hold home HCTZ. - monitor I&O - monitor renal function 07/04 I/O -802 mL, Creatinine 1.19 (2) HTN (hypertension): Qualifiers: Hypertension type: primary hypertension Qualified Code(s): I10 - Essential (primary) hypertension Code(s): I10 - Essential (primary) hypertension Status: Chronic Assessment and Plan: - chronic, currently 149/81, 07/04 105/52 - continue home medications: irbesartan, metoprolol. Hold HCTZ while receiving IV diuresis. - monitor (3) Diabetes: Code(s): E11.9 - Type 2 diabetes mellitus without complications Status: Acute Assessment and Plan: 07/04 FBS 152, Continue Januvia and SSI (4) Seronegative rheumatoid arthritis: Code(s): M06.00 - Rheumatoid arthritis without rheumatoid factor, unspecified site Status: Acute Assessment and Plan: 07/04 PT/OT requested Plan Code Status: DNR Subjective Date/time seen: 07/04/25 09:01 Interval history: Breathing better. Tolerated breakfast. Denied pain. Denied GI/ difficulties Review of Systems Review of Systems: All systems reviewed & are unremarkable except as noted in HPI and below Exam Narrative: HEENT: PERRL, sclerae nonicteric, pharyngeal mucosa pink and intact NECK: No JVD, adenopathy, or thyromegaly CHEST: Bibasilar crackles, R>L HEART: NL S1/S2, regular, no murmur ABDOMEN: BS+, soft, nontender, no mass, no bruits EXTREMITIES: No cyanosis, edema, or clubbing NEUROLOGIC: CN intact and symmetric to inspection MUSCULOSKELETAL: Tone and strength symmetric PSYCH: Alert. Oriented to person, place, and time Objective Data Vital Signs Vital Signs: Vital Signs - 24 hr 07/03/25 09:02 07/03/25 09:16 07/03/25 09:31 Temperature Pulse Rate 67 66 65 Respiratory Rate 24 H 25 H 27 H Blood Pressure 159/77 H 144/82 H 148/75 H Pulse Oximetry 98 95 100 Oxygen Delivery Oxygen Flow Rate 07/03/25 09:36 07/03/25 09:46 07/03/25 10:01 Temperature Pulse Rate 70 69 Respiratory Rate 20 25 H Blood Pressure 152/89 H 138/83 Pulse Oximetry 100 100 Oxygen Delivery Nasal Cannula Oxygen Flow Rate 2 07/03/25 10:16 07/03/25 10:32 07/03/25 10:46 Temperature Pulse Rate 68 67 68 Respiratory Rate 19 20 27 H Blood Pressure 142/72 H 136/71 146/71 H Pulse Oximetry 100 98 100 Oxygen Delivery Oxygen Flow Rate 07/03/25 11:01 07/03/25 11:16 07/03/25 12:04 Temperature Pulse Rate 70 65 65 Respiratory Rate 26 H 19 23 H Blood Pressure 101/54 L 138/72 149/81 H Pulse Oximetry 98 100 Oxygen Delivery Oxygen Flow Rate 07/03/25 12:41 07/03/25 13:57 07/03/25 20:16 Temperature 97.5 F L 97.1 F L Pulse Rate 70 70 Respiratory Rate 18 16 Blood Pressure 160/68 H 134/69 Pulse Oximetry 100 99 100 Oxygen Delivery Nasal Cannula Oxygen Flow Rate 2 07/03/25 20:40 07/03/25 22:00 07/04/25 06:00 Temperature 98.0 F 97.8 F Pulse Rate 72 70 Respiratory Rate 18 18 Blood Pressure 122/60 115/63 105/52 L Pulse Oximetry 100 100 Oxygen Delivery Oxygen Flow Rate 07/04/25 07:45 07/04/25 08:39 Temperature Pulse Rate 70 Respiratory Rate Blood Pressure Pulse Oximetry 93 Oxygen Delivery Nasal Cannula Oxygen Flow Rate 2 Intake/Output Intake/Output: Intake & Output 07/01/25 07/02/25 07/03/25 07/04/25 23:59 23:59 23:59 23:59 Intake Total 440 Output Total 400 802 Balance 40 -802 Meds/Results Medications: Active Medications Generic Name Dose Route Start Last Admin Trade Name Mosheq PRN Reason Stop Dose Admin Aspirin 81 mg 07/03/25 17:25 07/04/25 08:30 Aspirin 81 Mg Chewable Tablet PO 81 mg BID JESSE Administration Atorvastatin Calcium 20 mg 07/03/25 21:00 07/03/25 20:42 Atorvastatin 20 Mg Tablet PO 20 mg HS JESSE Administration Dextrose 12.5 gm 07/03/25 20:47 Dextrose 50% 25 Gm/50 Ml Syringe IV PUSH PRN PRN Hypoglycemia Protocol Docusate Sodium 100 mg 07/03/25 12:39 Docusate Sodium 100 Mg Capsule PO BID PRN Constipation Enoxaparin Sodium 40 mg 07/04/25 09:00 07/04/25 08:44 Enoxaparin 40 Mg/0.4 Ml Syringe SUB-Q 40 mg DAILY JESSE Administration Folic Acid 1 mg 07/04/25 09:00 07/04/25 08:29 Folic Acid 1 Mg Tablet PO 1 mg DAILY JESSE Administration Furosemide 40 mg 07/04/25 09:00 07/04/25 08:43 Furosemide Inj 40 Mg/4 Ml Vial IV PUSH 40 mg DAILY JESSE Administration Glucagon 1 mg 07/03/25 20:47 Glucagon For Inj 1 Mg Vial IM PRN PRN Hypoglycemia Protocol Glucose 15 gm 07/03/25 20:47 Glucose Oral Gel 15 Gm Of Glucse In 37.5 Gm Tube PO PRN PRN Hypoglycemia Protocol Dextrose 1,000 mls @ 100 mls/hr 07/03/25 20:47 Dextrose 5% 1,000 Ml IVPB PRN PRN Hypoglycemia Protocol Insulin Aspart 4 - 8 units 07/04/25 08:00 07/04/25 08:08 Insulin Aspart (*Bkc) 100 Units/Ml SUB-Q Not Given TIDWM JESSE Protocol Irbesartan 300 mg 07/04/25 09:00 07/04/25 08:39 Irbesartan 150 Mg Tablet PO 300 mg DAILY JESSE Administration Loratadine 5 mg 07/03/25 21:00 07/03/25 20:42 Loratadine 5 Mg Tablet PO 5 mg HS JESSE Administration Metoprolol Succinate 50 mg 07/04/25 09:00 07/04/25 08:39 Metoprolol Succinate Ext Rel 50 Mg Tabcr PO 50 mg DAILY JESSE Administration Miscellaneous Information 1 each 07/04/25 00:01 Actonel 35 Mg Nonform; Can Pt Use From Home? XX 08/03/25 00:00 CLARIFY JESSE Multivitamins/Minerals 1 tab 07/04/25 09:00 07/04/25 08:29 Multivitamins /C Lutein (Centrum Silver) Tablet *Bkc PO 1 tab DAILY JESSE Administration Nitroglycerin 0.4 mg 07/03/25 17:18 Nitroglycerin Sl 0.4 Mg Tablet SUBLINGUAL Q5M PRN Chest Pain Non-Formulary Medication 35 mg 07/10/25 09:00 Risedronate [Actonel] PO 08/09/25 08:59 WEEKLY JESSE Non-Formulary Medication 1 each 07/03/25 17:27 Nonformulary Nutritional Supplement XX 07/04/25 17:26 PRN PRN PROTOCOL Non-Formulary Medication 1 each 07/03/25 17:28 Nonformulary Nutritional Supplement XX 07/04/25 17:27 PRN PRN PROTOCOL Non-Formulary Medication 1 each 07/03/25 17:28 Nonformulary Nutritional Supplement XX 07/04/25 17:27 PRN PRN PROTOCOL Non-Formulary Medication 1 each 07/03/25 17:30 Nonformulary Nutritional Supplement XX 07/04/25 17:29 PRN PRN PROTOCOL Ondansetron HCl 4 mg 07/03/25 12:39 Ondansetron Inj 4 Mg/2 Ml Vial IV PUSH Q6H PRN Nausea And Vomiting Perflutren Lipid Microsphere 0 ml 07/03/25 10:59 Perflutren Lipid Microspheres 1.5 Ml Vial Diluted To 10 Ml Total Volume IV PUSH 07/06/25 11:00 ONCE PRN adequate visualization Protocol Sitagliptin Phosphate 50 mg 07/04/25 09:00 07/04/25 08:29 Sitagliptin Phosphate 50 Mg Tablet PO 50 mg DAILY JESSE Administration Tramadol HCl 25 mg 07/03/25 17:30 07/04/25 08:29 Tramadol Hcl (*Crx) 25 Mg Tablet PO 25 mg BID JESSE Administration Radiology Results: ITS Impressions Chest X-Ray 07/03/25 10:06 IMPRESSION: 1. Right basilar atelectasis and/or airspace disease. 2. Interstitial pulmonary edema and/or pneumonitis. Chest CTA 07/03/25 12:31 IMPRESSION: 1. No PE. 2. Mild interstitial pulmonary edema. 3. Significant right middle lobe and partial right lower lobe atelectasis secondary to elevated hemidiaphragm. Labs Labs: Laboratory Results - last 24 hr 07/03/25 07/03/25 07/03/25 09:06 09:06 20:25 WBC 10.0 RBC 3.60 L Hgb 11.2 L Hct 35.5 L MCV 98.6 MCH 31.1 MCHC 31.5 L RDW 14.5 Plt Count 213 MPV 9.8 Immature Gran % (Auto) 0.6 H Neut % (Auto) 67.7 Lymph % (Auto) 22.3 Rutherford % (Auto) 5.5 Eos % (Auto) 3.4 Baso % (Auto) 0.5 Lymph # (Auto) 2.23 Rutherford # (Auto) 0.6 Eos # (Auto) 0.3 Baso # (Auto) 0.1 Abs Immat Gran (auto) 0.06 H Absolute Neuts (auto) 6.8 H Absolute Nucleated RBC 0.000 Nucleated RBC % 0.0 D-Dimer 2.09 H Sodium 137 Potassium 4.0 Chloride 98 Carbon Dioxide 33 H Anion Gap 6 BUN 23 H D Creatinine 1.02 H Estim Creat Clear Calc Not Reportable Estimated GFR 51 L Glucose 186 H POC Capillary Glucose 210 H Calcium 9.7 Magnesium 1.8 Cancelled Total Bilirubin 0.5 AST 21 ALT 13 Alkaline Phosphatase 66 NT-Pro-B Natriuret Pep 1500 H Total Protein 7.0 Albumin 3.8 07/04/25 04:30 WBC 8.3 RBC 3.58 L Hgb 11.2 L Hct 35.4 L MCV 98.9 MCH 31.3 MCHC 31.6 L RDW 14.5 Plt Count 204 MPV 10.0 Immature Gran % (Auto) 0.4 Neut % (Auto) 58.5 Lymph % (Auto) 29.1 Rutherford % (Auto) 6.4 Eos % (Auto) 4.8 H Baso % (Auto) 0.8 Lymph # (Auto) 2.42 Rutherford # (Auto) 0.5 Eos # (Auto) 0.4 H Baso # (Auto) 0.1 Abs Immat Gran (auto) 0.03 Absolute Neuts (auto) 4.9 Absolute Nucleated RBC 0.000 Nucleated RBC % 0.0 D-Dimer Sodium 136 L Potassium 3.6 Chloride 94 L Carbon Dioxide 36 H Anion Gap 6 BUN 22 H Creatinine 1.19 H Estim Creat Clear Calc Not Reportable Estimated GFR 43 L Glucose 142 H POC Capillary Glucose Calcium 9.3 Magnesium Total Bilirubin AST ALT Alkaline Phosphatase NT-Pro-B Natriuret Pep Total Protein Albumin
[2025-07-04] MEDS: INSULIN ASPART (*BKC) 100 UNITS/ML SUB-Q (11:37)
[2025-07-04] MEDS: LORATADINE 5 MG TABLET PO (21:31)
[2025-07-04] MEDS: ATORVASTATIN 20 MG TABLET PO (21:31)
[2025-07-05] VITALS (11 sets, daily range): BP systolic 98–128; BP diastolic 44–59; PULSE 82–87; RESP 12–20; TEMP 36.3–36.4; O2SAT 92–100; BMI 34.2
[2025-07-05 05:04] LABS: Anion Gap 4 mmol/L (4-12); Blood Urea Nitrogen 26 mg/dL (7-17); Calcium 9.1 mg/dL (8.4-10.2); Carbon Dioxide 37 mmol/L (22-30); Chloride 93 mmol/L (98-107); Estimated Glomerular Filt Rate 39; Glucose 159 mg/dL (65-110); Potassium 3.6 mmol/L (3.4-5.0); Sodium 134 mmol/L (137-145)
--- NOTE | 2025-07-05 06:00 | ECHO_ITS ---
Patient Info Name: Rebecca Dillard Age: 89 years : 1935 Gender: Female Ht: 60 in Wt: 170 lbs BSA: 1.84 m2 HR: 85 bpm BP: 116 / 44 mmHg Heart Rhythm: Sinus Rhythm Technical Quality: Fair Exam Date: 07/05/2025 4:21 PM Patient Status: I Admit Date: 07/05/2025 Exam Type: CA echo doppler color flow Complete two-dimensional, color flow and Doppler transthoracic echocardiogram is performed. Staff Referring Physician: Bastheva Peter Registered Travel Nurse: Prisca Haywood Attending Provider: Scott Conley Summary 1. Complete two-dimensional, color flow and Doppler transthoracic echocardiogram is performed. 2. Concentric LVH with hyperdynamic systolic function. 3. Grade 1 diastolic noncompliance. 4. Dilated left atrium. 5. Mitral annular calcification. 6. Sclerotic aortic valve with good leaflet separation. Left Ventricle Left ventricular chamber dimension is normal. Left ventricular systolic function is hyperdynamic, estimated at >70. There is mild concentric increased left ventricular wall thickness. The left ventricular diastolic function is grade I diastolic dysfunction. Right Ventricle Right ventricular chamber dimension is normal. Left Atria Left atrial chamber dimension is moderately enlarged. Right Atria Right atrial chamber dimension is normal. Aortic Valve The aortic valve is not well visualized. There is mild aortic valve sclerosis. There is no aortic valve stenosis. Pulmonic Valve The pulmonic valve is not well visualized. Mitral Valve The mitral valve has normal leaflets. There is no mitral valve regurgitation. The mitral valve annulus is severely calcified. Tricuspid Valve The tricuspid valve leaflets are normal. Pericardium/Pleural The pericardium appears normal. Aorta The aortic root size at the sinus of Valsalva is normal. Left Ventricular Outflow Tract Name Value Normal LVOT 2D LVOT Diameter 2.0 cm LVOT Doppler LVOT Peak Velocity 131 cm/s LVOT Peak Gradient 7 mmHg LVOT Mean Gradient 3 mmHg LVOT VTI 21 cm LVOT VTI/AV VTI Ratio 0.7 LVOT Stroke Volume 70 ml LVOT CO 5.5 l/min LVOT CI 3.0 l/min/m2 Pulmonic Valve Name Value Normal RVOT Doppler RVOT Peak Velocity 104 cm/s RVOT Peak Gradient 4 mmHg PV Doppler PV Peak Velocity 121 cm/s PV Peak Gradient 6 mmHg Mitral Valve Name Value Normal MV Diastolic Function MV E Peak Velocity 98 cm/s MV A Peak Velocity 100 cm/s MV E/A 1.0 MV Decel Time (PW) 277 ms MV Annular TDI MV E/e' (Septal) 23.6 MV E/e' (Lateral) 13.9 MV E/e' (Average) 18.8 Tricuspid Valve Name Value Normal TV Regurgitation Doppler TR Peak Velocity 248 cm/s TR Peak Gradient 25 mmHg Estimated PAP/RSVP RA Pressure 10 mmHg <=5 PA Systolic Pressure 35 mmHg <36 RV Systolic Pressure 35 mmHg <36 TV Annular TDI TV Lateral Paty s' Velocity 13.3 cm/s >=9.5 Aorta Name Value Normal Ascending Aorta Ao Root Diameter (MM) 2.6 cm Ao Root Diam Index (MM) 1.4 cm/m2 Aortic Valve Name Value Normal AV Doppler AV Peak Velocity 190 cm/s AV Peak Gradient 14 mmHg AV Mean Gradient 8 mmHg AV VTI 32 cm AV Area (Cont Eq VTI) 2.2 cm2 >=3.0 AV Area (Cont Eq Ferny) 2.3 cm2 AV DI (Ferny) 0.69 AV Regurgitation 2D LVOT Area 3.3 cm2 Ventricles Name Value Normal LV Dimensions 2D/MM IVS Diastolic Thickness (2D) 0.8 cm 0.6-1.0 LVID Diastole (2D) 4.7 cm 3.8-5.2 LVIW Diastolic Thickness (2D) 0.7 cm 0.6-0.9 LVID Systole (2D) 2.8 cm 2.2-3.5 LVOT Diameter 2.0 cm LV Mass (2D Cubed) 105.41 g 67.00-162.00 LV Mass Index (2D Cubed) 57 g/m2 43-95 Relative Wall Thickness (2D) 0.28 <=0.42 LV Fractional Shortening/Ejection Fraction 2D/MM LV Fractional Shortening (2D) 40 % 27-45 LV EF (2D Teichholz) 70 % LV Diastolic Volume (4C MOD) 24 ml LV EF (4C MOD) 60 % LV Diastolic Volume (2C MOD) 30 ml LV EF (2C MOD) 65 % LV Diastolic Volume (BP MOD) 28 ml 46-106 LV Diastolic Volume Index (BP MOD) 15 ml/m2 29-61 LV Systolic Volume (BP MOD) 10 ml 14-42 LV Systolic Volume Index (BP MOD) 5 ml/m2 8-24 LV EF (BP MOD) 64 % 54-74 LV Diastolic Length (4C) 5.9 cm LV Systolic Length (4C) 5.4 cm LV Stroke Volume (4C MOD) 14 ml Atria Name Value Normal LA Dimensions LA Dimension (MM) 5.2 cm 2.7-3.8 LA Volume (4C A-L) 92 ml LA Volume (BP A-L) 91 ml RA Dimensions RA Area (4C) 7.9 cm2 <=18.0 Report Signatures
[2025-07-05] MEDS: MULTIVITAMINS /C LUTEIN (CENTRUM SILVER) TABLET *BKC 1 TAB PO (09:13)
[2025-07-05] MEDS: FOLIC ACID 1 MG TABLET PO (09:13)
[2025-07-05] MEDS: FUROSEMIDE INJ 40 MG/4 ML VIAL IV PUSH (09:15)
[2025-07-05] MEDS: ENOXAPARIN 40 MG/0.4 ML SYRINGE SUB-Q (09:15)
[2025-07-05] MEDS: ASPIRIN 81 MG CHEWABLE TABLET PO (09:15)
[2025-07-05] MEDS: INSULIN ASPART (*BKC) 100 UNITS/ML SUB-Q (12:29)
--- NOTE | 2025-07-05 14:16 | P.PNIM_ITS ---
Progress Note: A&P Assessment and Plan (1) CHF (congestive heart failure): Code(s): I50.9 - Heart failure, unspecified Status: Acute Assessment and Plan: Presented on 07/03 with worsening dyspnea and cough for the past week. Patient has history of congestive heart failure. She arrived 97% on room air. BNP elevated at 1500. CXR completed day of admission on 07/03 which showed 1. Right basilar atelectasis and/or airspace disease. 2. Interstitial pulmonary edema and/or pneumonitis. D-dimer was additionally elevated, however CTA negative for PE. No pneumonia appreciated, mild interstitial pulmonary edema seen. - Echo pending - IV diuresis: Lasix 40 mg IV daily. Hold home HCTZ. - monitor I&O - monitor renal function 07/04 I/O -802 mL, Creatinine 1.19 (2) HTN (hypertension): Qualifiers: Hypertension type: primary hypertension Qualified Code(s): I10 - Essential (primary) hypertension Code(s): I10 - Essential (primary) hypertension Status: Chronic Assessment and Plan: - chronic, currently 149/81, 07/04 105/52 - continue home medications: irbesartan, metoprolol. Hold HCTZ while receiving IV diuresis. - monitor (3) Diabetes: Code(s): E11.9 - Type 2 diabetes mellitus without complications Status: Acute Assessment and Plan: 07/04 FBS 152, Continue Januvia and SSI (4) Seronegative rheumatoid arthritis: Code(s): M06.00 - Rheumatoid arthritis without rheumatoid factor, unspecified site Status: Acute Assessment and Plan: 07/04 PT/OT requested Plan Code Status: DNR Subjective Date/time seen: 07/05/25 14:16 Interval history: Comfortable at bedside Echo pending Review of Systems Review of Systems: All systems reviewed & are unremarkable except as noted in HPI and below Exam Narrative: HEENT: PERRL, sclerae nonicteric, pharyngeal mucosa pink and intact NECK: No JVD, adenopathy, or thyromegaly CHEST: Bibasilar crackles, R>L HEART: NL S1/S2, regular, no murmur ABDOMEN: BS+, soft, nontender, no mass, no bruits EXTREMITIES: No cyanosis, edema, or clubbing NEUROLOGIC: CN intact and symmetric to inspection MUSCULOSKELETAL: Tone and strength symmetric PSYCH: Alert. Oriented to person, place, and time Const: General: comfortable and no acute distress Other: , female, nontoxic appearance HENMT: Face/Nose/Sinus: Normal nares present Mouth: Yes moist mucous membranes Eyes: General: appearance normal, both eyes and all related structures Sclera: sclerae normal Pupils: Equal, round and reactive pupils present EOM: EOMs intact bilaterally Resp: Other: Shallow respirations, very mild tachypnea without overt distress or accessory muscle use. Nasal cannula place, tolerating well. Diminished at bases. No wheezing or crackles appreciated on exam. Cardio: Rate: regular rate Rhythm: regular rhythm Other: S1-S2 present without murmur, rub, ectopy GI: Other: Abdomen soft, nondistended, nontender. Normoactive bowel sounds in all quadrants. Skin: General skin exam: normal color and no rashes or lesions noted Wounds: no wounds Neuro: Cranial nerves: Yes Equal, round and reactive pupils present Speech: normal speech Motor exam (neuro): 5/5 motor strength present throughout Sensory Exam: normal sensation Extrem: Other: Trace edema to bilateral calves, symmetric. Trace to 1+ pitting edema to bilateral ankles, symmetric. Psych: Mental Status: mental status grossly normal Affect: normal affect Other: Fair insight and judgment, pleasant Objective Data Vital Signs Vital Signs: Vital Signs - 24 hr 07/04/25 22:00 07/05/25 06:00 07/05/25 08:48 Temperature 98.3 F 97.4 F L Pulse Rate 66 85 Respiratory Rate 18 18 Blood Pressure 108/43 L 116/44 L Pulse Oximetry 100 100 92 Oxygen Delivery Nasal Cannula Oxygen Flow Rate 2 Fraction of Inspired Oxygen 28 07/05/25 09:18 07/05/25 09:29 07/05/25 09:41 Temperature Pulse Rate 85 85 85 Respiratory Rate Blood Pressure 102/54 L 102/54 L Pulse Oximetry 97 97 Oxygen Delivery Nasal Cannula Oxygen Flow Rate 2 Fraction of Inspired Oxygen 07/05/25 09:41 07/05/25 11:31 07/05/25 13:36 Temperature 97.6 F Pulse Rate 87 Respiratory Rate 16 Blood Pressure 99/50 L Pulse Oximetry 100 Oxygen Delivery Nasal Cannula Nasal Cannula Oxygen Flow Rate 2 2 Fraction of Inspired Oxygen Intake/Output Intake/Output: Intake & Output 07/02/25 07/03/25 07/04/25 07/05/25 23:59 23:59 23:59 23:59 Intake Total 440 800 480 Output Total 400 1052 300 Balance 40 -252 180 Meds/Results Medications: Active Medications Generic Name Dose Route Start Last Admin Trade Name Freq PRN Reason Stop Dose Admin Alendronate Sodium 70 mg 07/11/25 06:30 Alendronate Sodium 70 Mg Tablet BY MOUTH [email or web address] JESSE Aspirin 81 mg 07/03/25 17:25 07/05/25 09:15 Aspirin 81 Mg Chewable Tablet PO 81 mg BID JESSE Administration Atorvastatin Calcium 20 mg 07/03/25 21:00 07/04/25 21:31 Atorvastatin 20 Mg Tablet PO 20 mg HS JESSE Administration Dextrose 12.5 gm 07/03/25 20:47 Dextrose 50% 25 Gm/50 Ml Syringe IV PUSH PRN PRN Hypoglycemia Protocol Docusate Sodium 100 mg 07/03/25 12:39 Docusate Sodium 100 Mg Capsule PO BID PRN Constipation Enoxaparin Sodium 40 mg 07/04/25 09:00 07/05/25 09:15 Enoxaparin 40 Mg/0.4 Ml Syringe SUB-Q 40 mg DAILY JESSE Administration Folic Acid 1 mg 07/04/25 09:00 07/05/25 09:13 Folic Acid 1 Mg Tablet PO 1 mg DAILY JESSE Administration Furosemide 40 mg 07/04/25 09:00 07/05/25 09:15 Furosemide Inj 40 Mg/4 Ml Vial IV PUSH 40 mg DAILY JESSE Administration Glucagon 1 mg 07/03/25 20:47 Glucagon For Inj 1 Mg Vial IM PRN PRN Hypoglycemia Protocol Glucose 15 gm 07/03/25 20:47 Glucose Oral Gel 15 Gm Of Glucse In 37.5 Gm Tube PO PRN PRN Hypoglycemia Protocol Dextrose 1,000 mls @ 100 mls/hr 07/03/25 20:47 Dextrose 5% 1,000 Ml IVPB PRN PRN Hypoglycemia Protocol Insulin Aspart 4 - 8 units 07/04/25 08:00 07/05/25 12:29 Insulin Aspart (*Bkc) 100 Units/Ml SUB-Q 5 units TIDWM JESSE Administration Protocol Irbesartan 300 mg 07/04/25 09:00 07/05/25 09:29 Irbesartan 150 Mg Tablet PO Not Given DAILY JESSE Loratadine 5 mg 07/03/25 21:00 07/04/25 21:31 Loratadine 5 Mg Tablet PO 5 mg HS JESSE Administration Metoprolol Succinate 50 mg 07/04/25 09:00 07/05/25 09:29 Metoprolol Succinate Ext Rel 50 Mg Tabcr PO Not Given DAILY REPLACED BY [facility] Multivitamins/Minerals 1 tab 07/04/25 09:00 07/05/25 09:13 Multivitamins /C Lutein (Centrum Silver) Tablet *Bkc PO 1 tab DAILY JESSE Administration Nitroglycerin 0.4 mg 07/03/25 17:18 Nitroglycerin Sl 0.4 Mg Tablet SUBLINGUAL Q5M PRN Chest Pain Ondansetron HCl 4 mg 07/03/25 12:39 Ondansetron Inj 4 Mg/2 Ml Vial IV PUSH Q6H PRN Nausea And Vomiting Perflutren Lipid Microsphere 0 ml 07/03/25 10:59 Perflutren Lipid Microspheres 1.5 Ml Vial Diluted To 10 Ml Total Volume IV PUSH 07/06/25 11:00 ONCE PRN adequate visualization Protocol Sitagliptin Phosphate 50 mg 07/04/25 09:00 07/05/25 09:13 Sitagliptin Phosphate 50 Mg Tablet PO 50 mg DAILY REPLACED BY [facility] Administration Tramadol HCl 25 mg 07/03/25 17:30 07/05/25 09:30 Tramadol Hcl (*Crx) 25 Mg Tablet PO Not Given BID REPLACED BY [facility] Radiology Results: ITS Impressions Chest X-Ray 07/03/25 10:06 IMPRESSION: 1. Right basilar atelectasis and/or airspace disease. 2. Interstitial pulmonary edema and/or pneumonitis. Chest CTA 07/03/25 12:31 IMPRESSION: 1. No PE. 2. Mild interstitial pulmonary edema. 3. Significant right middle lobe and partial right lower lobe atelectasis seco ndary to elevated hemidiaphragm. Labs Labs: Laboratory Results - last 24 hr 07/04/25 07/04/25 07/05/25 16:56 19:29 04:18 Sodium 134 L Potassium 3.6 Chloride 93 L Carbon Dioxide 37 H Anion Gap 4 BUN 26 H Creatinine 1.30 H Estim Creat Clear Calc Not Reportable Estimated GFR 39 L Glucose 159 H POC Capillary Glucose 175 H 217 H Calcium 9.1 07/05/25 07/05/25 07:43 11:49 Sodium Potassium Chloride Carbon Dioxide Anion Gap BUN Creatinine Estim Creat Clear Calc Estimated GFR Glucose POC Capillary Glucose 181 H 295 H Calcium Quality VTE Prophylaxis VTE prophylaxis: pharmacologic ordered
[2025-07-05] MEDS: ATORVASTATIN 20 MG TABLET PO (21:04)
[2025-07-05] MEDS: LORATADINE 5 MG TABLET PO (21:05)
[2025-07-06] VITALS (8 sets, daily range): BP systolic 106–139; BP diastolic 51–75; PULSE 66–83; RESP 14–17; TEMP 36.3–36.6; O2SAT 95–100
[2025-07-06 04:48] LABS: Hematocrit 32.2 % (37.0-47.0); Hemoglobin 10.2 g/dL (12.0-15.0); Immature Granulocyte Percent A 0.7 % (0-0.5); Lymphocytes Absolute Auto 2.16 K/mm3 (0.9-3.2); Mean Corpuscular HGB Conc 31.7 g/dl (32-36); Mean Corpuscular Hemoglobin 31.0 pg (26-34); Mean Corpuscular Volume 97.9 fl (80-100); Nucleated Red Blood Cells Absolute Auto 0.000 K/mm3 (0.0-0.012); Nucleated Red Blood Cells Perc 0.0 % (0.0-0.2); Platelet Count Result 186 k/mm3 (150-375); Red Blood Count 3.29 M/mm3 (4.2-5.4); White Blood Count 9.0 K/mm3 (4.5-10.0)
[2025-07-06 05:06] LABS: Alanine Aminotransferase 10 U/L (6-35); Albumin Level 3.3 g/dL (3.5-5.1); Alkaline Phosphatase 58 U/L (38-126); Anion Gap 5 mmol/L (4-12); Aspartate Amino Transferase 19 U/L (14-36); Bilirubin,Total 0.8 mg/dL (0.2-1.3); Blood Urea Nitrogen 33 mg/dL (7-17); Calcium 8.5 mg/dL (8.4-10.2); Carbon Dioxide 34 mmol/L (22-30); Chloride 94 mmol/L (98-107); Estimated Glomerular Filt Rate 38; Glucose 183 mg/dL (65-110); Magnesium 2.1 mg/dL (1.6-2.3); Potassium 3.7 mmol/L (3.4-5.0); Sodium 133 mmol/L (137-145); Total Protein 6.1 g/dL (6.3-8.2)
--- NOTE | 2025-07-06 08:46 | PC.NURSE ---
Pt's BP was 108/54. Called provider, Dr. Jones, and asked if pt should receive irbesartan and metoprolol and he said to hold those medications and to give the lasix.
[2025-07-06] MEDS: MULTIVITAMINS /C LUTEIN (CENTRUM SILVER) TABLET *BKC 1 TAB PO (09:02)
[2025-07-06] MEDS: FOLIC ACID 1 MG TABLET PO (09:02)
[2025-07-06] MEDS: ASPIRIN 81 MG CHEWABLE TABLET PO ×2 (09:02→17:23)
[2025-07-06] MEDS: traMADol HCL (*CRX) 25 MG TABLET PO ×2 (09:02→17:23)
[2025-07-06] MEDS: ENOXAPARIN 40 MG/0.4 ML SYRINGE SUB-Q (09:03)
[2025-07-06] MEDS: FUROSEMIDE INJ 40 MG/4 ML VIAL IV PUSH (10:10)
[2025-07-06] MEDS: INSULIN ASPART (*BKC) 100 UNITS/ML SUB-Q ×2 (12:07→17:24)
--- NOTE | 2025-07-06 12:41 | P.PNIM_ITS ---
Progress Note: A&P Assessment and Plan (1) CHF (congestive heart failure): Code(s): I50.9 - Heart failure, unspecified Status: Acute Assessment and Plan: Presented on 07/03 with worsening dyspnea and cough for the past week. Patient has history of congestive heart failure. She arrived 97% on room air. BNP elevated at 1500. CXR completed day of admission on 07/03 which showed 1. Right basilar atelectasis and/or airspace disease. 2. Interstitial pulmonary edema and/or pneumonitis. D-dimer was additionally elevated, however CTA negative for PE. No pneumonia appreciated, mild interstitial pulmonary edema seen. - Echo grde I diastolic dysfunction - PO laisx 40mg daily - monitor I&O - monitor renal function 07/04 I/O -802 mL, Creatinine 1.19--> 1.32 (2) HTN (hypertension): Qualifiers: Hypertension type: primary hypertension Qualified Code(s): I10 - Essential (primary) hypertension Code(s): I10 - Essential (primary) hypertension Status: Chronic Assessment and Plan: - chronic, currently 149/81, 07/04 105/52 - continue home medications: irbesartan, metoprolol. Hold HCTZ while receiving IV diuresis. - monitor (3) Diabetes: Code(s): E11.9 - Type 2 diabetes mellitus without complications Status: Acute Assessment and Plan: 07/04 FBS 152, Continue Januvia and SSI (4) Seronegative rheumatoid arthritis: Code(s): M06.00 - Rheumatoid arthritis without rheumatoid factor, unspecified site Status: Acute Assessment and Plan: 07/04 PT/OT requested Plan Code Status: DNR Subjective Date/time seen: 07/06/25 12:41 Interval history: Comfortable at bedside Echo grade I diastolic dysfunction awaiting placement Review of Systems Review of Systems: All systems reviewed & are unremarkable except as noted in HPI and below Exam Narrative: HEENT: PERRL, sclerae nonicteric, pharyngeal mucosa pink and intact NECK: No JVD, adenopathy, or thyromegaly CHEST: Bibasilar crackles, R>L HEART: NL S1/S2, regular, no murmur ABDOMEN: BS+, soft, nontender, no mass, no bruits EXTREMITIES: No cyanosis, edema, or clubbing NEUROLOGIC: CN intact and symmetric to inspection MUSCULOSKELETAL: Tone and strength symmetric PSYCH: Alert. Oriented to person, place, and time Const: General: comfortable and no acute distress Other: , female, nontoxic appearance HENMT: Face/Nose/Sinus: Normal nares present Mouth: Yes moist mucous membranes Eyes: General: appearance normal, both eyes and all related structures Sclera: sclerae normal Pupils: Equal, round and reactive pupils present EOM: EOMs intact bilaterally Resp: Other: Shallow respirations, very mild tachypnea without overt distress or accessory muscle use. Nasal cannula place, tolerating well. Diminished at bases. No wheezing or crackles appreciated on exam. Cardio: Rate: regular rate Rhythm: regular rhythm Other: S1-S2 present without murmur, rub, ectopy GI: Other: Abdomen soft, nondistended, nontender. Normoactive bowel sounds in all quadrants. Skin: General skin exam: normal color and no rashes or lesions noted Wounds: no wounds Neuro: Cranial nerves: Yes Equal, round and reactive pupils present Speech: normal speech Motor exam (neuro): 5/5 motor strength present throughout Sensory Exam: normal sensation Extrem: Other: Trace edema to bilateral calves, symmetric. Trace to 1+ pitting edema to bilateral ankles, symmetric. Psych: Mental Status: mental status grossly normal Affect: normal affect Other: Fair insight and judgment, pleasant Objective Data Vital Signs Vital Signs: Vital Signs - 24 hr 07/05/25 13:36 07/05/25 17:00 07/05/25 18:17 Temperature 97.6 F Pulse Rate 87 Respiratory Rate 16 20 Blood Pressure 99/50 L 98/59 L 128/59 L Pulse Oximetry 100 98 Oxygen Delivery Oxygen Flow Rate 07/05/25 20:00 07/05/25 21:13 07/06/25 04:35 Temperature 97.6 F 97.4 F L Pulse Rate 82 66 Respiratory Rate 12 16 Blood Pressure 119/52 L 139/75 Pulse Oximetry 97 97 99 Oxygen Delivery Nasal Cannula Oxygen Flow Rate 2 07/06/25 08:00 07/06/25 08:20 07/06/25 08:40 Temperature 97.3 F L Pulse Rate 79 Respiratory Rate 17 Blood Pressure 108/54 L Pulse Oximetry 100 95 100 Oxygen Delivery Nasal Cannula Nasal Cannula Oxygen Flow Rate 2 2 Intake/Output Intake/Output: Intake & Output 07/03/25 07/04/25 07/05/25 07/06/25 23:59 23:59 23:59 23:59 Intake Total 440 800 480 480 Output Total 400 1052 500 400 Balance 40 -252 -20 80 Meds/Results Medications: Active Medications Generic Name Dose Route Start Last Admin Trade Name Freq PRN Reason Stop Dose Admin Alendronate Sodium 70 mg 07/11/25 06:30 Alendronate Sodium 70 Mg Tablet BY MOUTH [email or web address] JESSE Aspirin 81 mg 07/03/25 17:25 07/06/25 09:02 Aspirin 81 Mg Chewable Tablet PO 81 mg BID JESSE Administration Atorvastatin Calcium 20 mg 07/03/25 21:00 07/05/25 21:04 Atorvastatin 20 Mg Tablet PO 20 mg HS JESSE Administration Dextrose 12.5 gm 07/03/25 20:47 Dextrose 50% 25 Gm/50 Ml Syringe IV PUSH PRN PRN Hypoglycemia Protocol Docusate Sodium 100 mg 07/03/25 12:39 Docusate Sodium 100 Mg Capsule PO BID PRN Constipation Enoxaparin Sodium 40 mg 07/04/25 09:00 07/06/25 09:03 Enoxaparin 40 Mg/0.4 Ml Syringe SUB-Q 40 mg DAILY JESSE Administration Folic Acid 1 mg 07/04/25 09:00 07/06/25 09:02 Folic Acid 1 Mg Tablet PO 1 mg DAILY JESSE Administration Furosemide 40 mg 07/04/25 09:00 07/06/25 10:10 Furosemide Inj 40 Mg/4 Ml Vial IV PUSH 40 mg DAILY JESSE Administration Glucagon 1 mg 07/03/25 20:47 Glucagon For Inj 1 Mg Vial IM PRN PRN Hypoglycemia Protocol Glucose 15 gm 07/03/25 20:47 Glucose Oral Gel 15 Gm Of Glucse In 37.5 Gm Tube PO PRN PRN Hypoglycemia Protocol Dextrose 1,000 mls @ 100 mls/hr 07/03/25 20:47 Dextrose 5% 1,000 Ml IVPB PRN PRN Hypoglycemia Protocol Insulin Aspart 4 - 8 units 07/04/25 08:00 07/06/25 12:07 Insulin Aspart (*Bkc) 100 Units/Ml SUB-Q 5 units TIDWM JESSE Administration Protocol Irbesartan 300 mg 07/04/25 09:00 07/06/25 08:44 Irbesartan 150 Mg Tablet PO Not Given DAILY JESSE Loratadine 5 mg 07/03/25 21:00 07/05/25 21:05 Loratadine 5 Mg Tablet PO 5 mg HS JESSE Administration Metoprolol Succinate 50 mg 07/04/25 09:00 07/06/25 08:44 Metoprolol Succinate Ext Rel 50 Mg Tabcr PO Not Given DAILY JESSE Multivitamins/Minerals 1 tab 07/04/25 09:00 07/06/25 09:02 Multivitamins /C Lutein (Centrum Silver) Tablet *Bkc PO 1 tab DAILY JESSE Administration Nitroglycerin 0.4 mg 07/03/25 17:18 Nitroglycerin Sl 0.4 Mg Tablet SUBLINGUAL Q5M PRN Chest Pain Ondansetron HCl 4 mg 07/03/25 12:39 Ondansetron Inj 4 Mg/2 Ml Vial IV PUSH Q6H PRN Nausea And Vomiting Sitagliptin Phosphate 50 mg 07/04/25 09:00 07/06/25 09:02 Sitagliptin Phosphate 50 Mg Tablet PO 50 mg DAILY JESSE Administration Tramadol HCl 25 mg 07/03/25 17:30 07/06/25 09:02 Tramadol Hcl (*Crx) 25 Mg Tablet PO 25 mg BID JESSE Administration Radiology Results: ITS Impressions Chest X-Ray 07/03/25 10:06 IMPRESSION: 1. Right basilar atelectasis and/or airspace disease. 2. Interstitial pulmonary edema and/or pneumonitis. Chest CTA 07/03/25 12:31 IMPRESSION: 1. No PE. 2. Mild interstitial pulmonary edema. 3. Significant right middle lobe and partial right lower lobe atelectasis secondary to elevated hemidiaphragm. Labs Labs: Laboratory Results - last 24 hr 07/05/25 07/05/25 07/06/25 16:52 21:07 04:20 WBC 9.0 RBC 3.29 L Hgb 10.2 L Hct 32.2 L MCV 97.9 MCH 31.0 MCHC 31.7 L RDW 14.6 H Plt Count 186 MPV 10.2 Immature Gran % (Auto) 0.7 H Neut % (Auto) 64.9 Lymph % (Auto) 23.9 [place] % (Auto) 7.1 Eos % (Auto) 2.8 Baso % (Auto) 0.6 Lymph # (Auto) 2.16 [place] # (Auto) 0.6 Eos # (Auto) 0.3 Baso # (Auto) 0.1 Abs Immat Gran (auto) 0.06 H Absolute Neuts (auto) 5.9 Absolute Nucleated RBC 0.000 Nucleated RBC % 0.0 Sodium 133 L Potassium 3.7 Chloride 94 L Carbon Dioxide 34 H Anion Gap 5 BUN 33 H Creatinine 1.32 H Estim Creat Clear Calc Not Reportable Estimated GFR 38 L Glucose 183 H POC Capillary Glucose 283 H 225 H Calcium 8.5 Magnesium 2.1 Total Bilirubin 0.8 AST 19 ALT 10 Alkaline Phosphatase 58 Total Protein 6.1 L Albumin 3.3 L 07/06/25 07/06/25 07:52 11:53 WBC RBC Hgb Hct MCV MCH MCHC RDW Plt Count MPV Immature Gran % (Auto) Neut % (Auto) Lymph % (Auto) [place] % (Auto) Eos % (Auto) Baso % (Auto) Lymph # (Auto) [place] # (Auto) Eos # (Auto) Baso # (Auto) Abs Immat Gran (auto) Absolute Neuts (auto) Absolute Nucleated RBC Nucleated RBC % Sodium Potassium Chloride Carbon Dioxide Anion Gap BUN Creatinine Estim Creat Clear Calc Estimated GFR Glucose POC Capillary Glucose 189 H 287 H Calcium Magnesium Total Bilirubin AST ALT Alkaline Phosphatase Total Protein Albumin Quality VTE Prophylaxis VTE prophylaxis: pharmacologic ordered
--- NOTE | 2025-07-06 13:59 | PC.NURSE ---
On 07/06/25, the student, [Justa John], provided care and completed [facility] documentation on this patient. I have reviewed the student's documentation and agree with the findings.
[2025-07-06] MEDS: LORATADINE 5 MG TABLET PO (20:17)
[2025-07-06] MEDS: ATORVASTATIN 20 MG TABLET PO (20:17)
[2025-07-07] VITALS (8 sets, daily range): BP systolic 105–126; BP diastolic 49–58; PULSE 74–85; RESP 18; TEMP 36.4–36.5; O2SAT 91–98
[2025-07-07 05:19] LABS: Alanine Aminotransferase 12 U/L (6-35); Albumin Level 3.2 g/dL (3.5-5.1); Alkaline Phosphatase 57 U/L (38-126); Anion Gap 5 mmol/L (4-12); Aspartate Amino Transferase 21 U/L (14-36); Bilirubin,Total 0.7 mg/dL (0.2-1.3); Blood Urea Nitrogen 36 mg/dL (7-17); Calcium 8.5 mg/dL (8.4-10.2); Carbon Dioxide 33 mmol/L (22-30); Chloride 90 mmol/L (98-107); Estimated Glomerular Filt Rate 39; Glucose 166 mg/dL (65-110); Magnesium 2.1 mg/dL (1.6-2.3); Potassium 3.8 mmol/L (3.4-5.0); Sodium 128 mmol/L (137-145); Total Protein 6.0 g/dL (6.3-8.2)
[2025-07-07] MEDS: ASPIRIN 81 MG CHEWABLE TABLET PO ×2 (08:59→17:54)
[2025-07-07] MEDS: MULTIVITAMINS /C LUTEIN (CENTRUM SILVER) TABLET *BKC 1 TAB PO (08:59)
[2025-07-07] MEDS: FOLIC ACID 1 MG TABLET PO (08:59)
[2025-07-07] MEDS: IRBESARTAN 150 MG TABLET 300 MG PO (08:59)
[2025-07-07] MEDS: METOPROLOL SUCCINATE EXT REL 50 MG TABCR PO (09:00)
[2025-07-07] MEDS: traMADol HCL (*CRX) 25 MG TABLET PO ×2 (09:00→17:54)
[2025-07-07] MEDS: ENOXAPARIN 40 MG/0.4 ML SYRINGE SUB-Q (09:01)
[2025-07-07] MEDS: INSULIN ASPART (*BKC) 100 UNITS/ML SUB-Q ×3 (09:02→17:54)
--- NOTE | 2025-07-07 09:42 | PM.IMPN ---
Progress Note: A&P Assessment and Plan (1) CHF (congestive heart failure): Code(s): I50.9 - Heart failure, unspecified Status: Acute Assessment and Plan: Presented on 07/03 with worsening dyspnea and cough for the past week. Patient has history of congestive heart failure. She arrived 97% on room air. BNP elevated at 1500. CXR completed day of admission on 07/03 which showed 1. Right basilar atelectasis and/or airspace disease. 2. Interstitial pulmonary edema and/or pneumonitis. D-dimer was additionally elevated, however CTA negative for PE. No pneumonia appreciated, mild interstitial pulmonary edema seen. - Echo grde I diastolic dysfunction - Hold Lasix due to hyponatremia - monitor I&O - monitor renal function 07/04 I/O -802 mL, Creatinine 1.19--> 1.32-->1.29 (2) HTN (hypertension): Qualifiers: Hypertension type: primary hypertension Qualified Code(s): I10 - Essential (primary) hypertension Code(s): I10 - Essential (primary) hypertension Status: Chronic Assessment and Plan: - chronic, currently 149/81, 07/04 105/52 - continue home medications: irbesartan, metoprolol. Hold HCTZ while receiving IV diuresis. - monitor (3) Diabetes: Code(s): E11.9 - Type 2 diabetes mellitus without complications Status: Acute Assessment and Plan: 07/04 FBS 152, Continue Januvia and SSI (4) Seronegative rheumatoid arthritis: Code(s): M06.00 - Rheumatoid arthritis without rheumatoid factor, unspecified site Status: Acute Assessment and Plan: 07/04 PT/OT requested Plan Hyponatremia Na 128 down from 136 Lasix on hold monitor DVT prophylaxis on Sq Lovenox Code Status: DNR Subjective Date/time seen: 07/07/25 09:42 Interval history: Comfortable at bedside Na 128 this morning, laix held and monitor one more day for Hyponatremia Review of Systems Review of Systems: All systems reviewed & are unremarkable except as noted in HPI and below Exam Narrative: HEENT: PERRL, sclerae nonicteric, pharyngeal mucosa pink and intact NECK: No JVD, adenopathy, or thyromegaly CHEST: Bibasilar crackles, R>L HEART: NL S1/S2, regular, no murmur ABDOMEN: BS+, soft, nontender, no mass, no bruits EXTREMITIES: No cyanosis, edema, or clubbing NEUROLOGIC: CN intact and symmetric to inspection MUSCULOSKELETAL: Tone and strength symmetric PSYCH: Alert. Oriented to person, place, and time Const: General: comfortable and no acute distress Other: , female, nontoxic appearance HENMT: Face/Nose/Sinus: Normal nares present Mouth: Yes moist mucous membranes Eyes: General: appearance normal, both eyes and all related structures Sclera: sclerae normal Pupils: Equal, round and reactive pupils present EOM: EOMs intact bilaterally Resp: Other: Shallow respirations, very mild tachypnea without overt distress or accessory muscle use. Nasal cannula place, tolerating well. Diminished at bases. No wheezing or crackles appreciated on exam. Cardio: Rate: regular rate Rhythm: regular rhythm Other: S1-S2 present without murmur, rub, ectopy GI: Other: Abdomen soft, nondistended, nontender. Normoactive bowel sounds in all quadrants. Skin: General skin exam: normal color and no rashes or lesions noted Wounds: no wounds Neuro: Cranial nerves: Yes Equal, round and reactive pupils present Speech: normal speech Motor exam (neuro): 5/5 motor strength present throughout Sensory Exam: normal sensation Extrem: Other: Trace edema to bilateral calves, symmetric. Trace to 1+ pitting edema to bilateral ankles, symmetric. Psych: Mental Status: mental status grossly normal Affect: normal affect Other: Fair insight and judgment, pleasant Objective Data Vital Signs Vital Signs: Vital Signs - 24 hr 07/06/25 13:24 07/06/25 14:00 07/06/25 20:10 Temperature 97.9 F Pulse Rate 83 Respiratory Rate 14 Blood Pressure 106/61 Pulse Oximetry 100 97 97 Oxygen Delivery Nasal Cannula Nasal Cannula Oxygen Flow Rate 2 2 07/06/25 21:16 07/07/25 05:45 07/07/25 08:00 Temperature 97.4 F L 97.7 F Pulse Rate 83 79 Respiratory Rate 16 18 Blood Pressure 123/51 L 126/55 L Pulse Oximetry 97 98 96 Oxygen Delivery Nasal Cannula Oxygen Flow Rate 2 07/07/25 08:13 07/07/25 08:59 07/07/25 09:00 Temperature Pulse Rate 85 85 Respiratory Rate Blood Pressure 125/58 L Pulse Oximetry 95 Oxygen Delivery Nasal Cannula Oxygen Flow Rate 2 Intake/Output Intake/Output: Intake & Output 07/04/25 07/05/25 07/06/25 07/07/25 23:59 23:59 23:59 23:59 Intake Total 800 480 950 560 Output Total 1052 500 400 625 Balance -252 -20 550 -65 Meds/Results Medications: Active Medications Generic Name Dose Route Start Last Admin Trade Name Freq PRN Reason Stop Dose Admin Alendronate Sodium 70 mg 07/11/25 06:30 Alendronate Sodium 70 Mg Tablet BY MOUTH [email or web address] JESSE Aspirin 81 mg 07/03/25 17:25 07/07/25 08:59 Aspirin 81 Mg Chewable Tablet PO 81 mg BID JESSE Administration Atorvastatin Calcium 20 mg 07/03/25 21:00 07/06/25 20:17 Atorvastatin 20 Mg Tablet PO 20 mg HS JESSE Administration Dextrose 12.5 gm 07/03/25 20:47 Dextrose 50% 25 Gm/50 Ml Syringe IV PUSH PRN PRN Hypoglycemia Protocol Docusate Sodium 100 mg 07/03/25 12:39 Docusate Sodium 100 Mg Capsule PO BID PRN Constipation Enoxaparin Sodium 40 mg 07/04/25 09:00 07/07/25 09:01 Enoxaparin 40 Mg/0.4 Ml Syringe SUB-Q 40 mg DAILY JESSE Administration Folic Acid 1 mg 07/04/25 09:00 07/07/25 08:59 Folic Acid 1 Mg Tablet PO 1 mg DAILY JESSE Administration Furosemide 40 mg 07/04/25 09:00 07/06/25 10:10 Furosemide Inj 40 Mg/4 Ml Vial IV PUSH 40 mg On Hold: 07/07/25 07:25 DAILY JESSE Administration Glucagon 1 mg 07/03/25 20:47 Glucagon For Inj 1 Mg Vial IM PRN PRN Hypoglycemia Protocol Glucose 15 gm 07/03/25 20:47 Glucose Oral Gel 15 Gm Of Glucse In 37.5 Gm Tube PO PRN PRN Hypoglycemia Protocol Dextrose 1,000 mls @ 100 mls/hr 07/03/25 20:47 Dextrose 5% 1,000 Ml IVPB PRN PRN Hypoglycemia Protocol Insulin Aspart 4 - 8 units 07/04/25 08:00 07/07/25 09:02 Insulin Aspart (*Bkc) 100 Units/Ml SUB-Q 4 units TIDWM JESSE Administration Protocol Irbesartan 300 mg 07/04/25 09:00 07/07/25 08:59 Irbesartan 150 Mg Tablet PO 300 mg DAILY JESSE Administration Loratadine 5 mg 07/03/25 21:00 07/06/25 20:17 Loratadine 5 Mg Tablet PO 5 mg HS JESSE Administration Metoprolol Succinate 50 mg 07/04/25 09:00 07/07/25 09:00 Metoprolol Succinate Ext Rel 50 Mg Tabcr PO 50 mg DAILY JESSE Administration Multivitamins/Minerals 1 tab 07/04/25 09:00 07/07/25 08:59 Multivitamins /C Lutein (Centrum Silver) Tablet *Bkc PO 1 tab DAILY JESSE Administration Nitroglycerin 0.4 mg 07/03/25 17:18 Nitroglycerin Sl 0.4 Mg Tablet SUBLINGUAL Q5M PRN Chest Pain Ondansetron HCl 4 mg 07/03/25 12:39 Ondansetron Inj 4 Mg/2 Ml Vial IV PUSH Q6H PRN Nausea And Vomiting Sitagliptin Phosphate 50 mg 07/04/25 09:00 07/07/25 09:00 Sitagliptin Phosphate 50 Mg Tablet PO 50 mg DAILY JESSE Administration Tramadol HCl 25 mg 07/03/25 17:30 07/07/25 09:00 Tramadol Hcl (*Crx) 25 Mg Tablet PO 25 mg BID JESSE Administration Radiology Results: ITS Impressions Chest X-Ray 07/03/25 10:06 IMPRESSION: 1. Right basilar atelectasis and/or airspace disease. 2. Interstitial pulmonary edema and/or pneumonitis. Chest CTA 07/03/25 12:31 IMPRESSION: 1. No PE. 2. Mild interstitial pulmonary edema. 3. Significant right middle lobe and partial right lower lobe atelectasis secondary to elevated hemidiaphragm. Labs Labs: Laboratory Results - last 24 hr 07/06/25 07/06/25 07/06/25 11:53 17:11 21:13 Sodium Potassium Chloride Carbon Dioxide Anion Gap BUN Creatinine Estim Creat Clear Calc Estimated GFR Glucose POC Capillary Glucose 287 H 214 H 253 H Calcium Magnesium Total Bilirubin AST ALT Alkaline Phosphatase Total Protein Albumin 07/07/25 07/07/25 04:28 08:16 Sodium 128 L Potassium 3.8 Chloride 90 L Carbon Dioxide 33 H Anion Gap 5 BUN 36 H Creatinine 1.29 H Estim Creat Clear Calc Not Reportable Estimated GFR 39 L Glucose 166 H POC Capillary Glucose 203 H Calcium 8.5 Magnesium 2.1 Total Bilirubin 0.7 AST 21 ALT 12 Alkaline Phosphatase 57 Total Protein 6.0 L Albumin 3.2 L Quality VTE Prophylaxis VTE prophylaxis: pharmacologic ordered
[2025-07-07] MEDS: ATORVASTATIN 20 MG TABLET PO (20:32)
[2025-07-07] MEDS: LORATADINE 5 MG TABLET PO (20:32)
[2025-07-08] VITALS (7 sets, daily range): BP systolic 98–121; BP diastolic 52–82; PULSE 66–76; RESP 18; TEMP 36.3–36.6; O2SAT 95–98
[2025-07-08 04:46] LABS: Hematocrit 29.9 % (37.0-47.0); Hemoglobin 9.7 g/dL (12.0-15.0); Immature Granulocyte Percent A 0.7 % (0-0.5); Lymphocytes Absolute Auto 2.31 K/mm3 (0.9-3.2); Mean Corpuscular HGB Conc 32.4 g/dl (32-36); Mean Corpuscular Hemoglobin 31.1 pg (26-34); Mean Corpuscular Volume 95.8 fl (80-100); Nucleated Red Blood Cells Absolute Auto 0.000 K/mm3 (0.0-0.012); Nucleated Red Blood Cells Perc 0.0 % (0.0-0.2); Platelet Count Result 191 k/mm3 (150-375); Red Blood Count 3.12 M/mm3 (4.2-5.4); White Blood Count 9.0 K/mm3 (4.5-10.0)
[2025-07-08 05:16] LABS: Alanine Aminotransferase 11 U/L (6-35); Albumin Level 3.3 g/dL (3.5-5.1); Alkaline Phosphatase 59 U/L (38-126); Anion Gap 5 mmol/L (4-12); Aspartate Amino Transferase 26 U/L (14-36); Bilirubin,Total 0.6 mg/dL (0.2-1.3); Blood Urea Nitrogen 36 mg/dL (7-17); Calcium 8.6 mg/dL (8.4-10.2); Carbon Dioxide 32 mmol/L (22-30); Chloride 91 mmol/L (98-107); Estimated Glomerular Filt Rate 45; Glucose 186 mg/dL (65-110); Magnesium 2.4 mg/dL (1.6-2.3); Potassium 4.2 mmol/L (3.4-5.0); Sodium 128 mmol/L (137-145); Total Protein 6.2 g/dL (6.3-8.2)
[2025-07-08] MEDS: INSULIN ASPART (*BKC) 100 UNITS/ML SUB-Q ×3 (08:57→16:48)
[2025-07-08] MEDS: METOPROLOL SUCCINATE EXT REL 50 MG TABCR PO (09:23)
[2025-07-08] MEDS: ASPIRIN 81 MG CHEWABLE TABLET PO ×2 (09:23→16:52)
[2025-07-08] MEDS: traMADol HCL (*CRX) 25 MG TABLET PO ×2 (09:23→16:52)
[2025-07-08] MEDS: FOLIC ACID 1 MG TABLET PO (09:23)
[2025-07-08] MEDS: IRBESARTAN 150 MG TABLET 300 MG PO (09:23)
[2025-07-08] MEDS: MULTIVITAMINS /C LUTEIN (CENTRUM SILVER) TABLET *BKC 1 TAB PO (09:24)
[2025-07-08] MEDS: SODIUM CHLORIDE 1 GM TABLET PO ×3 (09:26→16:53)
[2025-07-08] MEDS: ENOXAPARIN 40 MG/0.4 ML SYRINGE SUB-Q (09:29)
--- NOTE | 2025-07-08 10:09 | PCPTNOTE ---
Attempted to see patient for PT, however patient refused. Patient reported she does not feel well and is nauseated.
--- NOTE | 2025-07-08 11:55 | P.PNIM_ITS ---
Progress Note: A&P Assessment and Plan (1) CHF (congestive heart failure): Code(s): I50.9 - Heart failure, unspecified Status: Acute Assessment and Plan: Presented on 07/03 with worsening dyspnea and cough for the past week. Patient has history of congestive heart failure. She arrived 97% on room air. BNP elevated at 1500. CXR completed day of admission on 07/03 which showed 1. Right basilar atelectasis and/or airspace disease. 2. Interstitial pulmonary edema and/or pneumonitis. D-dimer was additionally elevated, however CTA negative for PE. No pneumonia appreciated, mild interstitial pulmonary edema seen. - Echo grade I diastolic dysfunction - Hold Lasix due to hyponatremia - monitor I&O - monitor renal function 07/04 I/O -802 mL, Creatinine 1.19--> 1.32-->1.29-->1.14 (2) HTN (hypertension): Qualifiers: Hypertension type: primary hypertension Qualified Code(s): I10 - Essential (primary) hypertension Code(s): I10 - Essential (primary) hypertension Status: Chronic Assessment and Plan: - chronic, currently 149/81, 07/04 105/52 - continue home medications: irbesartan, metoprolol. Hold HCTZ while receiving IV diuresis. - monitor (3) Diabetes: Code(s): E11.9 - Type 2 diabetes mellitus without complications Status: Acute Assessment and Plan: 07/04 FBS 152, Continue Januvia and SSI (4) Seronegative rheumatoid arthritis: Code(s): M06.00 - Rheumatoid arthritis without rheumatoid factor, unspecified site Status: Acute Assessment and Plan: 07/04 PT/OT requested Plan Hyponatremia Na 128 down from 136 Lasix on hold, continue salt tablets patient will discharge on lasxi 20mg when ready monitor Vomiting and lightheadedness Patient had one episode of vomiting and complained of lightheadedness BP 120/54 Ortho vital signs pending CXR ordered will consider IVF pending DVT prophylaxis on Sq Lovenox Code Status: DNR Awaiting improving in Sodium level and dizziness for discharge Subjective Date/time seen: 07/08/25 11:55 Interval history: Patient complained of vomiting and lightheadedness today Lasix held yesterday and started on Salt tablets Ortho vital signs Review of Systems Review of Systems: All systems reviewed & are unremarkable except as noted in HPI and below Exam Narrative: HEENT: PERRL, sclerae nonicteric, pharyngeal mucosa pink and intact NECK: No JVD, adenopathy, or thyromegaly CHEST: Bibasilar crackles, R>L HEART: NL S1/S2, regular, no murmur ABDOMEN: BS+, soft, nontender, no mass, no bruits EXTREMITIES: No cyanosis, edema, or clubbing NEUROLOGIC: CN intact and symmetric to inspection MUSCULOSKELETAL: Tone and strength symmetric PSYCH: Alert. Oriented to person, place, and time Const: General: comfortable and no acute distress Other: , female, nontoxic appearance HENMT: Face/Nose/Sinus: Normal nares present Mouth: Yes moist mucous membranes Eyes: General: appearance normal, both eyes and all related structures Sclera: sclerae normal Pupils: Equal, round and reactive pupils present EOM: EOMs intact bilaterally Resp: Other: Shallow respirations, very mild tachypnea without overt distress or accessory muscle use. Nasal cannula place, tolerating well. Diminished at bases. No wheezing or crackles appreciated on exam. Cardio: Rate: regular rate Rhythm: regular rhythm Other: S1-S2 present without murmur, rub, ectopy GI: Other: Abdomen soft, nondistended, nontender. Normoactive bowel sounds in all quadrants. Skin: General skin exam: normal color and no rashes or lesions noted Wounds: no wounds Neuro: Cranial nerves: Yes Equal, round and reactive pupils present Speech: normal speech Motor exam (neuro): 5/5 motor strength present throughout [place] Exam: normal sensation Extrem: Other: Trace edema to bilateral calves, symmetric. Trace to 1+ pitting edema to bi lateral ankles, symmetric. Psych: Mental Status: mental status grossly normal Affect: normal affect Other: Fair insight and judgment, pleasant Objective Data Vital Signs Vital Signs: Vital Signs - 24 hr 07/07/25 13:47 07/07/25 20:22 07/07/25 22:00 Temperature 97.7 F 97.6 F Pulse Rate 77 74 Respiratory Rate 18 18 Blood Pressure 118/49 L 105/52 L Pulse Oximetry 94 91 Oxygen Delivery Room Air 07/08/25 06:00 07/08/25 09:23 07/08/25 09:25 Temperature 97.3 F L Pulse Rate 73 73 Respiratory Rate 18 Blood Pressure 120/58 L Pulse Oximetry 95 Oxygen Delivery Room Air Intake/Output Intake/Output: Intake & Output 07/05/25 07/06/25 07/07/25 07/08/25 23:59 23:59 23:59 23:59 Intake Total 480 950 800 120 Output Total 500 400 625 900 Balance -20 550 175 -780 Meds/Results Medications: Active Medications Generic Name Dose Route Start Last Admin Trade Name Freq PRN Reason Stop Dose Admin Alendronate Sodium 70 mg 07/11/25 06:30 Alendronate Sodium 70 Mg Tablet BY MOUTH [email or web address] JESSE Aspirin 81 mg 07/03/25 17:25 07/08/25 09:23 Aspirin 81 Mg Chewable Tablet PO 81 mg BID JESSE Administration Atorvastatin Calcium 20 mg 07/03/25 21:00 07/07/25 20:32 Atorvastatin 20 Mg Tablet PO 20 mg HS JESSE Administration Dextrose 12.5 gm 07/03/25 20:47 Dextrose 50% 25 Gm/50 Ml Syringe IV PUSH PRN PRN Hypoglycemia Protocol Docusate Sodium 100 mg 07/03/25 12:39 Docusate Sodium 100 Mg Capsule PO BID PRN Constipation Enoxaparin Sodium 40 mg 07/04/25 09:00 07/08/25 09:29 Enoxaparin 40 Mg/0.4 Ml Syringe SUB-Q 40 mg DAILY JESSE Administration Folic Acid 1 mg 07/04/25 09:00 07/08/25 09:23 Folic Acid 1 Mg Tablet PO 1 mg DAILY JESSE Administration Furosemide 40 mg 07/04/25 09:00 07/06/25 10:10 Furosemide Inj 40 Mg/4 Ml Vial IV PUSH 40 mg On Hold: 07/07/25 07:25 DAILY JESSE Administration Glucagon 1 mg 07/03/25 20:47 Glucagon For Inj 1 Mg Vial IM PRN PRN Hypoglycemia Protocol Glucose 15 gm 07/03/25 20:47 Glucose Oral Gel 15 Gm Of Glucse In 37.5 Gm Tube PO PRN PRN Hypoglycemia Protocol Dextrose 1,000 mls @ 100 mls/hr 07/03/25 20:47 Dextrose 5% 1,000 Ml IVPB PRN PRN Hypoglycemia Protocol Insulin Aspart 4 - 8 units 07/04/25 08:00 07/08/25 08:57 Insulin Aspart (*Bkc) 100 Units/Ml SUB-Q 4 units TIDWM JESSE Administration Protocol Irbesartan 300 mg 07/04/25 09:00 07/08/25 09:23 Irbesartan 150 Mg Tablet PO 300 mg DAILY JESSE Administration Loratadine 5 mg 07/03/25 21:00 07/07/25 20:32 Loratadine 5 Mg Tablet PO 5 mg HS JESSE Administration Metoprolol Succinate 50 mg 07/04/25 09:00 07/08/25 09:23 Metoprolol Succinate Ext Rel 50 Mg Tabcr PO 50 mg DAILY JESSE Administration Multivitamins/Minerals 1 tab 07/04/25 09:00 07/08/25 09:24 Multivitamins /C Lutein (Centrum Silver) Tablet *Bkc PO 1 tab DAILY JESSE Administration Nitroglycerin 0.4 mg 07/03/25 17:18 Nitroglycerin Sl 0.4 Mg Tablet SUBLINGUAL Q5M PRN Chest Pain Ondansetron HCl 4 mg 07/03/25 12:39 Ondansetron Inj 4 Mg/2 Ml Vial IV PUSH Q6H PRN Nausea And Vomiting Sitagliptin Phosphate 50 mg 07/04/25 09:00 07/08/25 09:24 Sitagliptin Phosphate 50 Mg Tablet PO 50 mg DAILY JESSE Administration Sodium Chloride 1 gm 07/08/25 09:00 07/08/25 09:26 Sodium Chloride 1 Gm Tablet PO 1 gm TID JESSE Administration Tramadol HCl 25 mg 07/03/25 17:30 07/08/25 09:23 Tramadol Hcl (*Crx) 25 Mg Tablet PO 25 mg BID JESSE Administration Radiology Results: ITS Impressions Chest X-Ray 07/03/25 10:06 IMPRESSION: 1. Right basilar atelectasis and/or airspace disease. 2. Interstitial pulmonary edema and/or pneumonitis. Chest CTA 07/03/25 12:31 IMPRESSION: 1. No PE. 2. Mild interstitial pulmonary edema. 3. Significant right middle lobe and partial right lower lobe atelectasis secondary to elevated hemidiaphragm. Labs Labs: Laboratory Results - last 24 hr 07/07/25 07/07/25 07/08/25 17:49 20:17 04:09 WBC 9.0 RBC 3.12 L Hgb 9.7 L Hct 29.9 L MCV 95.8 MCH 31.1 MCHC 32.4 RDW 14.5 Plt Count 191 MPV 10.5 H Immature Gran % (Auto) 0.7 H Neut % (Auto) 63.4 Lymph % (Auto) 25.6 [place] % (Auto) 6.8 Eos % (Auto) 3.3 Baso % (Auto) 0.2 Lymph # (Auto) 2.31 [place] # (Auto) 0.6 Eos # (Auto) 0.3 Baso # (Auto) 0.0 Abs Immat Gran (auto) 0.06 H Absolute Neuts (auto) 5.7 Absolute Nucleated RBC 0.000 Nucleated RBC % 0.0 Sodium 128 L Potassium 4.2 Chloride 91 L Carbon Dioxide 32 H Anion Gap 5 BUN 36 H Creatinine 1.14 H Estim Creat Clear Calc Not Reportable Estimated GFR 45 L Glucose 186 H POC Capillary Glucose 265 H 284 H Calcium 8.6 Magnesium 2.4 H Total Bilirubin 0.6 AST 26 ALT 11 Alkaline Phosphatase 59 Total Protein 6.2 L Albumin 3.3 L 07/08/25 07/08/25 07:46 11:34 WBC RBC Hgb Hct MCV MCH MCHC RDW Plt Count MPV Immature Gran % (Auto) Neut % (Auto) Lymph % (Auto) [place] % (Auto) Eos % (Auto) Baso % (Auto) Lymph # (Auto) [place] # (Auto) Eos # (Auto) Baso # (Auto) Abs Immat Gran (auto) Absolute Neuts (auto) Absolute Nucleated RBC Nucleated RBC % Sodium Potassium Chloride Carbon Dioxide Anion Gap BUN Creatinine Estim Creat Clear Calc Estimated GFR Glucose POC Capillary Glucose 211 H 241 H Calcium Magnesium Total Bilirubin AST ALT Alkaline Phosphatase Total Protein Albumin Quality VTE Prophylaxis VTE prophylaxis: pharmacologic ordered
[2025-07-08] MEDS: ONDANSETRON INJ 4 MG/2 ML VIAL IV PUSH (12:10)
[2025-07-08] MEDS: ATORVASTATIN 20 MG TABLET PO (20:20)
[2025-07-08] MEDS: LORATADINE 5 MG TABLET PO (20:20)
[2025-07-09 05:14] LABS: Hematocrit 29.3 % (37.0-47.0); Hemoglobin 9.3 g/dL (12.0-15.0); Immature Granulocyte Percent A 0.5 % (0-0.5); Lymphocytes Absolute Auto 2.23 K/mm3 (0.9-3.2); Mean Corpuscular HGB Conc 31.7 g/dl (32-36); Mean Corpuscular Hemoglobin 31.1 pg (26-34); Mean Corpuscular Volume 98.0 fl (80-100); Nucleated Red Blood Cells Absolute Auto 0.000 K/mm3 (0.0-0.012); Nucleated Red Blood Cells Perc 0.0 % (0.0-0.2); Platelet Count Result 189 k/mm3 (150-375); Red Blood Count 2.99 M/mm3 (4.2-5.4); White Blood Count 8.9 K/mm3 (4.5-10.0)
[2025-07-09 05:26] LABS: Alanine Aminotransferase 13 U/L (6-35); Albumin Level 3.3 g/dL (3.5-5.1); Alkaline Phosphatase 64 U/L (38-126); Anion Gap 3 mmol/L (4-12); Aspartate Amino Transferase 24 U/L (14-36); Bilirubin,Total 0.4 mg/dL (0.2-1.3); Blood Urea Nitrogen 33 mg/dL (7-17); Calcium 8.6 mg/dL (8.4-10.2); Carbon Dioxide 33 mmol/L (22-30); Chloride 95 mmol/L (98-107); Estimated Glomerular Filt Rate 43; Glucose 175 mg/dL (65-110); Magnesium 2.4 mg/dL (1.6-2.3); Potassium 4.4 mmol/L (3.4-5.0); Sodium 131 mmol/L (137-145); Total Protein 6.2 g/dL (6.3-8.2)
[2025-07-09 06:00] VITALS: BP 126/47; PULSE 73; RESP 18; TEMP 36.2; O2SAT 94
[2025-07-09 09:00] VITALS: BP 126/57
--- NOTE | 2025-07-09 09:48 | PCNFU ---
Nutrition Follow-Up Complete: Inadequate oral intake related to loss of appetite as evidenced by intakes 0-80% since admission Intakes >75% - Making progress with goal. Continue with same goal Goal: Pt current nutrition is Diabetic consistent carbs. Ensure + HP BID (350 kcal, 20 g protein). Nutrition recommendation: No new recommendations. Continue current nutrition care plan and orders. Agree with orders Last recorded weight is 80.2 kg. Bowel Motility: +2 BMs 07/07 Labs Reviewed: Hgb 9.3, Hct 29.3, Alb 3.3, Na 131, BUN 33, Cre 1.19, Glu 175 Meds Noted: Lasix, Zofran, NovoLog Skin: No skin issues noted Additional Notes: Intakes poor to good. Had some vomiting yesterday. Continue current nutrition care plan. Monitoring intakes, weights, labs, supplement tolerance, plan of care Follow up in 5 days
[2025-07-09 09:50] VITALS: O2SAT 94
[2025-07-09 09:56] VITALS: PULSE 74
[2025-07-09] MEDS: MULTIVITAMINS /C LUTEIN (CENTRUM SILVER) TABLET *BKC 1 TAB PO (09:56)
[2025-07-09] MEDS: ENOXAPARIN 40 MG/0.4 ML SYRINGE SUB-Q (09:56)
[2025-07-09] MEDS: SODIUM CHLORIDE 1 GM TABLET PO ×3 (09:56→17:01)
[2025-07-09] MEDS: FOLIC ACID 1 MG TABLET PO (09:56)
[2025-07-09] MEDS: traMADol HCL (*CRX) 25 MG TABLET PO ×2 (09:56→17:01)
[2025-07-09] MEDS: METOPROLOL SUCCINATE EXT REL 50 MG TABCR PO (09:56)
[2025-07-09] MEDS: ASPIRIN 81 MG CHEWABLE TABLET PO ×2 (09:56→17:01)
[2025-07-09] MEDS: ONDANSETRON INJ 4 MG/2 ML VIAL IV PUSH (10:00)
[2025-07-09] MEDS: IRBESARTAN 150 MG TABLET 300 MG PO (12:03)
[2025-07-09] MEDS: INSULIN ASPART (*BKC) 100 UNITS/ML SUB-Q (12:04)
[2025-07-09 12:57] VITALS: BP 116/57; PULSE 64; RESP 16; TEMP 36.4; O2SAT 94
--- NOTE | 2025-07-09 13:47 | P.PNIM_ITS ---
Progress Note: A&P Assessment and Plan (1) CHF (congestive heart failure): Code(s): I50.9 - Heart failure, unspecified Status: Acute Assessment and Plan: Presented on 07/03 with worsening dyspnea and cough for the past week. Patient has history of congestive heart failure. She arrived 97% on room air. BNP elevated at 1500. CXR completed day of admission on 07/03 which showed 1. Right basilar atelectasis and/or airspace disease. 2. Interstitial pulmonary edema and/or pneumonitis. D-dimer was additionally elevated, however CTA negative for PE. No pneumonia appreciated, mild interstitial pulmonary edema seen. - Echo grade I diastolic dysfunction concentric LVH - Hold Lasix due to hyponatremia - monitor I&O - monitor renal function Creatinine 1.19--> 1.32-->1.29-->1.14 (2) HTN (hypertension): Qualifiers: Hypertension type: primary hypertension Qualified Code(s): I10 - Essential (primary) hypertension Code(s): I10 - Essential (primary) hypertension Status: Chronic Assessment and Plan: - continue home medications: irbesartan, metoprolol. Hold HCTZ while receiving IV diuresis. - monitor (3) Diabetes: Code(s): E11.9 - Type 2 diabetes mellitus without complications Status: Acute Assessment and Plan: Continue Januvia and SSI (4) Seronegative rheumatoid arthritis: Code(s): M06.00 - Rheumatoid arthritis without rheumatoid factor, unspecified site Status: Acute Assessment and Plan: 07/04 PT/OT requested Plan Hyponatremia Na 128 down from 136 Lasix on hold, continue salt tablets and with improvement Resume Lasix monitor Anemia normocytic. No signs of bleeding history of mild anemia Vomiting and lightheadedness Patient had one episode of vomiting and complained of lightheadedness BP 120/54 Ortho vital signs pending CXR with CHF DVT prophylaxis on Sq Lovenox Code Status: DNR Subjective Date/time seen: 07/09/25 13:47 Interval history: No overnight events. Patient feels better today. Denies any new complaints. Review of Systems Review of Systems: All systems reviewed & are unremarkable except as noted in HPI and below Exam Narrative: HEENT: PERRL, sclerae nonicteric, pharyngeal mucosa pink and intact NECK: No JVD, adenopathy, or thyromegaly CHEST: Bibasilar crackles, R>L HEART: NL S1/S2, regular, no murmur ABDOMEN: BS+, soft, nontender, no mass, no bruits EXTREMITIES: No cyanosis, edema, or clubbing NEUROLOGIC: CN intact and symmetric to inspection MUSCULOSKELETAL: Tone and strength symmetric PSYCH: Alert. Oriented to person, place, and time Objective Data Vital Signs Vital Signs: Vital Signs - 24 hr 07/08/25 14:00 07/08/25 16:35 07/08/25 16:38 Temperature Pulse Rate 73 66 73 Respiratory Rate 18 Blood Pressure 108/82 98/52 L 108/82 Pulse Oximetry 98 Oxygen Delivery Fraction of Inspired Oxygen 07/08/25 20:16 07/08/25 21:20 07/08/25 22:00 Temperature 97.8 F Pulse Rate 76 76 Respiratory Rate 18 Blood Pressure 121/68 Pulse Oximetry 97 97 Oxygen Delivery Room Air Room Air Fraction of Inspired Oxygen 21 07/09/25 06:00 07/09/25 09:00 07/09/25 09:50 Temperature 97.2 F L Pulse Rate 73 Respiratory Rate 18 Blood Pressure 126/47 L 126/57 L Pulse Oximetry 94 94 Oxygen Delivery Room Air Fraction of Inspired Oxygen 07/09/25 09:56 07/09/25 12:57 Temperature 97.5 F L Pulse Rate 74 64 Respiratory Rate 16 Blood Pressure 116/57 L Pulse Oximetry 94 Oxygen Delivery Fraction of Inspired Oxygen Intake/Output Intake/Output: Intake & Output 07/06/25 07/07/25 07/08/25 07/09/25 23:59 23:59 23:59 23:59 Intake Total 950 800 910 480 Output Total 400 625 900 650 Balance 550 175 10 -170 Meds/Results Medications: Active Medications Generic Name Dose Route Start Last Admin Trade Name Freq PRN Reason Stop Dose Admin Alendronate Sodium 70 mg 07/11/25 06:30 Alendronate Sodium 70 Mg Tablet BY MOUTH [email or web address] [facility] Aspirin 81 mg 07/03/25 17:25 07/09/25 09:56 Aspirin 81 Mg Chewable Tablet PO 81 mg BID JESSE Administration Atorvastatin Calcium 20 mg 07/03/25 21:00 07/08/25 20:20 Atorvastatin 20 Mg Tablet PO 20 mg HS JESSE Administration Dextrose 12.5 gm 07/03/25 20:47 Dextrose 50% 25 Gm/50 Ml Syringe IV PUSH PRN PRN Hypoglycemia Protocol Docusate Sodium 100 mg 07/03/25 12:39 Docusate Sodium 100 Mg Capsule PO BID PRN Constipation Enoxaparin Sodium 40 mg 07/04/25 09:00 07/09/25 09:56 Enoxaparin 40 Mg/0.4 Ml Syringe SUB-Q 40 mg DAILY JESSE Administration Folic Acid 1 mg 07/04/25 09:00 07/09/25 09:56 Folic Acid 1 Mg Tablet PO 1 mg DAILY JESSE Administration Furosemide 40 mg 07/04/25 09:00 07/06/25 10:10 Furosemide Inj 40 Mg/4 Ml Vial IV PUSH 40 mg On Hold: 07/07/25 07:25 DAILY JESSE Administration Glucagon 1 mg 07/03/25 20:47 Glucagon For Inj 1 Mg Vial IM PRN PRN Hypoglycemia Protocol Glucose 15 gm 07/03/25 20:47 Glucose Oral Gel 15 Gm Of Glucse In 37.5 Gm Tube PO PRN PRN Hypoglycemia Protocol Dextrose 1,000 mls @ 100 mls/hr 07/03/25 20:47 Dextrose 5% 1,000 Ml IVPB PRN PRN Hypoglycemia Protocol Insulin Aspart 4 - 8 units 07/04/25 08:00 07/09/25 12:04 Insulin Aspart (*Bkc) 100 Units/Ml SUB-Q 5 units TIDWM JESSE Administration Protocol Irbesartan 300 mg 07/04/25 09:00 07/09/25 12:03 Irbesartan 150 Mg Tablet PO 300 mg DAILY JESSE Administration Loratadine 5 mg 07/03/25 21:00 07/08/25 20:20 Loratadine 5 Mg Tablet PO 5 mg HS JESSE Administration Metoprolol Succinate 50 mg 07/04/25 09:00 07/09/25 09:56 Metoprolol Succinate Ext Rel 50 Mg Tabcr PO 50 mg DAILY JESSE Administration Multivitamins/Minerals 1 tab 07/04/25 09:00 07/09/25 09:56 Multivitamins /C Lutein (Centrum Silver) Tablet *Bkc PO 1 tab DAILY JESSE Administration Nitroglycerin 0.4 mg 07/03/25 17:18 Nitroglycerin Sl 0.4 Mg Tablet SUBLINGUAL Q5M PRN Chest Pain Ondansetron HCl 4 mg 07/03/25 12:39 07/09/25 10:00 Ondansetron Inj 4 Mg/2 Ml Vial IV PUSH 4 mg Q6H PRN Administration Nausea And Vomiting Sitagliptin Phosphate 50 mg 07/04/25 09:00 07/09/25 09:56 Sitagliptin Phosphate 50 Mg Tablet PO 50 mg DAILY JESSE Administration Sodium Chloride 1 gm 07/08/25 09:00 07/09/25 12:06 Sodium Chloride 1 Gm Tablet PO 1 gm TID JESSE Administration Tramadol HCl 25 mg 07/03/25 17:30 07/09/25 09:56 Tramadol Hcl (*Crx) 25 Mg Tablet PO 25 mg BID JESSE Administration Radiology Results: ITS Impressions Chest CTA 07/03/25 12:31 IMPRESSION: 1. No PE. 2. Mild interstitial pulmonary edema. 3. Significant right middle lobe and partial right lower lobe atelectasis secondary to elevated hemidiaphragm. Chest X-Ray 07/08/25 12:25 Impression: CHF Labs Labs: Laboratory Results - last 24 hr 07/08/25 07/08/25 07/08/25 14:35 16:19 23:19 WBC RBC Hgb Hct MCV MCH MCHC RDW Plt Count MPV Immature Gran % (Auto) Neut % (Auto) Lymph % (Auto) [place] % (Auto) Eos % (Auto) Baso % (Auto) Lymph # (Auto) [place] # (Auto) Eos # (Auto) Baso # (Auto) Abs Immat Gran (auto) Absolute Neuts (auto) Absolute Nucleated RBC Nucleated RBC % Sodium Potassium Chloride Carbon Dioxide Anion Gap BUN Creatinine Estim Creat Clear Calc Estimated GFR Glucose POC Capillary Glucose 318 H 236 H Lactic Acid 2.1 H Calcium Magnesium Total Bilirubin AST ALT Alkaline Phosphatase Total Protein Albumin 07/09/25 07/09/25 07/09/25 04:40 08:03 11:44 WBC 8.9 RBC 2.99 L Hgb 9.3 L Hct 29.3 L MCV 98.0 MCH 31.1 MCHC 31.7 L RDW 14.3 Plt Count 189 MPV 10.5 H Immature Gran % (Auto) 0.5 Neut % (Auto) 62.8 Lymph % (Auto) 25.1 [place] % (Auto) 7.8 Eos % (Auto) 3.2 Baso % (Auto) 0.6 Lymph # (Auto) 2.23 [place] # (Auto) 0.7 H Eos # (Auto) 0.3 Baso # (Auto) 0.1 Abs Immat Gran (auto) 0.04 H Absolute Neuts (auto) 5.6 Absolute Nucleated RBC 0.000 Nucleated RBC % 0.0 Sodium 131 L Potassium 4.4 Chloride 95 L Carbon Dioxide 33 H Anion Gap 3 L BUN 33 H Creatinine 1.19 H Estim Creat Clear Calc Not Reportable Estimated GFR 43 L Glucose 175 H POC Capillary Glucose 170 H 255 H Lactic Acid Calcium 8.6 Magnesium 2.4 H Total Bilirubin 0.4 AST 24 ALT 13 Alkaline Phosphatase 64 Total Protein 6.2 L Albumin 3.3 L
[2025-07-09] MEDS: FUROSEMIDE 40 MG TABLET PO (14:42)
[2025-07-09] MEDS: DOCUSATE SODIUM 100 MG CAPSULE PO (17:01)
[2025-07-09 20:12] VITALS: BP 126/76; PULSE 79; RESP 20; TEMP 36.6; O2SAT 95
[2025-07-09] MEDS: ATORVASTATIN 20 MG TABLET PO (20:31)
[2025-07-09] MEDS: LORATADINE 5 MG TABLET PO (20:31)
[2025-07-10 02:48] VITALS: BP 122/63; PULSE 69; RESP 20; TEMP 36.4; O2SAT 94
[2025-07-10 05:32] LABS: Hematocrit 29.9 % (37.0-47.0); Hemoglobin 9.3 g/dL (12.0-15.0); Immature Granulocyte Percent A 0.8 % (0-0.5); Lymphocytes Absolute Auto 2.42 K/mm3 (0.9-3.2); Mean Corpuscular HGB Conc 31.1 g/dl (32-36); Mean Corpuscular Hemoglobin 31.1 pg (26-34); Mean Corpuscular Volume 100.0 fl (80-100); Nucleated Red Blood Cells Absolute Auto 0.000 K/mm3 (0.0-0.012); Nucleated Red Blood Cells Perc 0.0 % (0.0-0.2); Platelet Count Result 191 k/mm3 (150-375); Red Blood Count 2.99 M/mm3 (4.2-5.4); White Blood Count 9.0 K/mm3 (4.5-10.0)
[2025-07-10 05:45] LABS: Alanine Aminotransferase 13 U/L (6-35); Albumin Level 3.2 g/dL (3.5-5.1); Alkaline Phosphatase 60 U/L (38-126); Anion Gap 4 mmol/L (4-12); Aspartate Amino Transferase 25 U/L (14-36); Bilirubin,Total 0.3 mg/dL (0.2-1.3); Blood Urea Nitrogen 37 mg/dL (7-17); Calcium 8.6 mg/dL (8.4-10.2); Carbon Dioxide 34 mmol/L (22-30); Chloride 94 mmol/L (98-107); Estimated Glomerular Filt Rate 42; Glucose 170 mg/dL (65-110); Magnesium 2.2 mg/dL (1.6-2.3); Potassium 4.4 mmol/L (3.4-5.0); Sodium 132 mmol/L (137-145); Total Protein 6.0 g/dL (6.3-8.2)
[2025-07-10 08:57] VITALS: PULSE 69
[2025-07-10] MEDS: ASPIRIN 81 MG CHEWABLE TABLET PO (08:57)
[2025-07-10] MEDS: METOPROLOL SUCCINATE EXT REL 50 MG TABCR PO (08:57)
[2025-07-10] MEDS: FUROSEMIDE 40 MG TABLET PO (08:58)
[2025-07-10] MEDS: MULTIVITAMINS /C LUTEIN (CENTRUM SILVER) TABLET *BKC 1 TAB PO (08:58)
[2025-07-10] MEDS: FOLIC ACID 1 MG TABLET PO (08:58)
[2025-07-10] MEDS: traMADol HCL (*CRX) 25 MG TABLET PO (08:58)
[2025-07-10] MEDS: ENOXAPARIN 40 MG/0.4 ML SYRINGE SUB-Q (08:58)
[2025-07-10] MEDS: SODIUM CHLORIDE 1 GM TABLET PO ×2 (08:58→12:45)
[2025-07-10] MEDS: IRBESARTAN 150 MG TABLET 300 MG PO (09:03)
--- NOTE | 2025-07-10 13:19 | P.DS_ITS ---
DS: Admitting Diagnosis Discharge Date 07/10/2025 Admitting Diagnosis Shortness of breath DS: Discharge Diagnosis Discharge Diagnosis (1) CHF (congestive heart failure): Code(s): I50.9 - Heart failure, unspecified Status: Acute (2) HTN (hypertension): Qualifiers: Hypertension type: primary hypertension Qualified Code(s): I10 - Essential (primary) hypertension Code(s): I10 - Essential (primary) hypertension Status: Chronic (3) Diabetes: Code(s): E11.9 - Type 2 diabetes mellitus without complications Status: Acute (4) Seronegative rheumatoid arthritis: Code(s): M06.00 - Rheumatoid arthritis without rheumatoid factor, unspecified site Status: Acute DS: Summary Hospital Course Hospital Course: # CHF (congestive heart failure): Presented on 07/03 with worsening dyspnea and cough for the past week. Patient has history of congestive heart failure. She arrived 97% on room air. BNP elevated at 1500. CXR completed day of admission on 07/03 which showed 1. Right basilar atelectasis and/or airspace disease. 2. Interstitial pulmonary edema and/or pneumonitis. D-dimer was additionally elevated, however CTA negative for PE. No pneumonia appreciated, mild interstitial pulmonary edema seen. - Echo grade I diastolic dysfunction concentric LVH - Hold Lasix due to hyponatremia - monitor I&O - monitor renal function Creatinine 1.19--> 1.32-->1.29-->1.14 # HTN (hypertension): - continue home medications: irbesartan, metoprolol. Hold HCTZ while receiving IV diuresis. - monitor # Diabetes: Continue Januvia and SSI # Seronegative rheumatoid arthritis: 07/04 PT/OT requested. # Hyponatremia Na 128 down from 136 Lasix on hold, continue salt tablets and with improvement Resume Lasix monitor # Anemia normocytic. No signs of bleeding history of mild anemia Vomiting and lightheadedness Patient had one episode of vomiting and complained of lightheadedness BP 120/54 Ortho vital signs pending CXR with CHF # DVT prophylaxis on Sq Lovenox # Code Status: DNR Time Spent with Patient Time attestation: Total time spent providing and/or coordinating discharge services: Minutes Exam Narrative: HEENT: PERRL, sclerae nonicteric, pharyngeal mucosa pink and intact NECK: No JVD, adenopathy, or thyromegaly CHEST: Bibasilar crackles, R>L HEART: NL S1/S2, regular, no murmur ABDOMEN: BS+, soft, nontender, no mass, no bruits EXTREMITIES: No cyanosis, edema, or clubbing NEUROLOGIC: CN intact and symmetric to inspection MUSCULOSKELETAL: Tone and strength symmetric PSYCH: Alert. Oriented to person, place, and time DS: Data Data Completed and Pending Completed studies during hospitalization: Exam Type: CA echo doppler color flow Complete two-dimensional, color flow and Doppler transthoracic echocardiogram is performed. Staff Referring Physician: Batsheva Peter Welt Insole Channeler: Prisca Haywood Attending Provider: Scott Conley Summary 1. Complete two-dimensional, color flow and Doppler transthoracic echocardiogram is performed. 2. Concentric LVH with hyperdynamic systolic function. 3. Grade 1 diastolic noncompliance. 4. Dilated left atrium. 5. Mitral annular calcification. 6. Sclerotic aortic valve with good leaflet separation. Left Ventricle Left ventricular chamber dimension is normal. Left ventricular systolic function is hyperdynamic, estimated at >70. There is mild concentric increased left ventricular wall thickness. The left ventricular diastolic function is grade I diastolic dysfunction. Right Ventricle Right ventricular chamber dimension is normal. Left Atria Left atrial chamber dimension is moderately enlarged. Right Atria Right atrial chamber dimension is normal. Aortic Valve The aortic valve is not well visualized. There is mild aortic valve sclerosis. There is no aortic valve stenosis. Pulmonic Valve The pulmonic valve is not well visualized. Mitral Valve The mitral valve has normal leaflets. There is no mitral valve regurgitation. The mitral valve annulus is severely calcified. Tricuspid Valve The tricuspid valve leaflets are normal. Pericardium/Pleural The pericardium appears normal. Aorta The aortic root size at the sinus of Valsalva is normal. Labs on day of discharge: Labs from last 24 hours 07/10/25 07/10/25 07/10/25 11:52 07:40 04:42 WBC 9.0 RBC 2.99 L Hgb 9.3 L Hct 29.9 L MCV 100.0 MCH 31.1 MCHC 31.1 L RDW 14.4 Plt Count 191 MPV 10.7 H Immature Gran % (Auto) 0.8 H Neut % (Auto) 61.2 Lymph % (Auto) 26.9 [place] % (Auto) 6.9 Eos % (Auto) 3.6 Baso % (Auto) 0.6 Lymph # (Auto) 2.42 [place] # (Auto) 0.6 Eos # (Auto) 0.3 Baso # (Auto) 0.1 Abs Immat Gran (auto) 0.07 H Absolute Neuts (auto) 5.5 Absolute Nucleated RBC 0.000 Nucleated RBC % 0.0 Sodium 132 L Potassium 4.4 Chloride 94 L Carbon Dioxide 34 H Anion Gap 4 BUN 37 H Creatinine 1.22 H Estim Creat Clear Calc Not Reportable Estimated GFR 42 L Glucose 170 H POC Capillary Glucose 229 H 156 H Calcium 8.6 Magnesium 2.2 Total Bilirubin 0.3 AST 25 ALT 13 Alkaline Phosphatase 60 Total Protein 6.0 L Albumin 3.2 L 07/09/25 07/09/25 20:16 16:43 WBC RBC Hgb Hct MCV MCH MCHC RDW Plt Count MPV Immature Gran % (Auto) Neut % (Auto) Lymph % (Auto) [place] % (Auto) Eos % (Auto) Baso % (Auto) Lymph # (Auto) [place] # (Auto) Eos # (Auto) Baso # (Auto) Abs Immat Gran (auto) Absolute Neuts (auto) Absolute Nucleated RBC Nucleated RBC % Sodium Potassium Chloride Carbon Dioxide Anion Gap BUN Creatinine Estim Creat Clear Calc Estimated GFR Glucose POC Capillary Glucose 280 H 178 H Calcium Magnesium Total Bilirubin AST ALT Alkaline Phosphatase Total Protein Albumin Imaging Radiologist's impression: ITS Impressions Chest X-Ray 07/03/25 10:06 IMPRESSION: 1. Right basilar atelectasis and/or airspace disease. 2. Interstitial pulmonary edema and/or pneumonitis. Chest CTA 07/03/25 12:31 IMPRESSION: 1. No PE. 2. Mild interstitial pulmonary edema. 3. Significant right middle lobe and partial right lower lobe atelectasis secondary to elevated hemidiaphragm. Chest X-Ray 07/08/25 12:25 Impression: CHF Discharge Plan Discharge Attending physician on discharge: Venu Dupree Discharging Clinician: Venu Dupree Anticipated Discharge Date/Time: 07/10/25 13:21 Patient Disposition: Home with Home Health Service Patient Instructions: Antibiotic Form, Safe Use of Anticoagulants (GEN) Patient Language: German Stand Alone Forms: General Discharge Information Follow-up/Referrals: Samantha,Shantelle Waterman APRN [Primary Care Provider, [facility]] - 1 Week Discharge Medications: New furosemide 40 mg Tablet 40 mg PO DAILY Qty: 30 0RF Continued atorvastatin 20 mg Tablet 20 mg PO HS cetirizine 10 mg Tablet 5 mg PO HS glucosamine-chondroitin [Osteo Bi-Flex] 250-200 mg Tablet 1 tablet PO BID metoprolol succinate 50 mg Tablet Extended Release 24 Hr 50 mg PO DAILY irbesartan 300 mg Tablet 300 mg PO DAILY Alive Once Daily Women 50 Plus 800-100 mcg Tablet 1 tablet PO DAILY nitroglycerin 0.4 mg Tablet, Sublingual 0.4 mg SUBLINGUAL Q5-15M PRN (Reason: Chest Pain) Ultra CoQ10 75 mg Capsule 75 mg PO DAILY folic acid 1 mg Tablet 1 mg PO DAILY risedronate [Actonel] 35 mg tablet 35 mg PO WEEKLY Patient Comments: takes on Saturday tramadol 50 mg Tablet 25 mg PO BID [facility] 10 billion cell -200 mg Capsule 1 cap PO DAILY PRN (Reason: As patient wants) Emergen-C 500 mg Tablet,Chewable 1 tablet PO DAILY aspirin 81 mg tablet,chewable 81 mg PO BID Januvia 50 mg tablet 50 mg PO DAILY Discontinued hydrochlorothiazide 12.5 mg Tablet 12.5 mg PO DAILY aspirin 325 mg Tablet 325 mg PO DAILY PRN (Reason: Pain) Other Ambulatory Orders: Basic Metabolic Panel (Routine) Timeframe: 1 Week Location: Determined by Patient Ordered By: Venu Dupree Complete Blood Count with Diff (Routine) Timeframe: 1 Week Location: Determined by Patient Ordered By: Venu Dupree Date of admission: 07/05/25 14:33 Primary Care Provider: Samantha,Shantelle Waterman Admitting Provider: Scott Conley Attending physician on admission: Scott Conley Condition: Stable
== END 2025-07-10 13:40 | DRG 291 ==
LOC: ANHED 09:36 → ANH2MED 12:29
PROVIDERS: Internal Medicine; Student in an Organized Health Care Education/Training Program; Admitting Provider General Practice; Emergency Provider Emergency Medicine; PCP Nurse Practitioner Family; Visit Provider Internal Medicine
DX: I11.0 Hypertensive heart disease with heart failure (principal); I50.33 Acute on chronic diastolic (congestive) heart failure; E87.1 Hypo-osmolality and hyponatremia; E78.5 Hyperlipidemia, unspecified; I45.19 Other right bundle-branch block; I25.10 Atherosclerotic heart disease of native coronary artery without angina pectoris; E11.9 Type 2 diabetes mellitus without complications; M79.7 Fibromyalgia; M81.8 Other osteoporosis without current pathological fracture; M06.00 Rheumatoid arthritis without rheumatoid factor, unspecified site; D64.89 Other specified anemias; Z66 Do not resuscitate; Z96.659 Presence of unspecified artificial knee joint; Z95.5 Presence of coronary angioplasty implant and graft; Z79.82 Long term (current) use of aspirin; Z79.85 Long-term (current) use of injectable non-insulin antidiabetic drugs; Z90.49 Acquired absence of other specified parts of digestive tract; I25.2 Old myocardial infarction
CPT/HCPCS: 36415; 71045; 71275; 80048; 80053; 82948; 83605; 83735; 83880; 85025; 85380; 93005; 93306; 96372; 96374; 96376; 97110; 97162; 97166; 97530; 97535; 99285; A9270; G0378; J1650; J1815; J1938; J2405; Q9967